=== PATIENT | male | born 1985 | race Caucasian/White ===

== ENCOUNTER 2019-02-14 18:30 | Emergency (ER) | payer MEDICAID ==
[~2019-02-14] VITALS: Ht 185.4 cm; Wt 79.7 kg
[2019-02-14 18:45] VITALS: BP 147/85
== END 2019-02-14 20:08 ==
LOC: ED 19:34
DX: B34.9 Viral infection, unspecified (principal); Z88.0 Allergy status to penicillin
CPT/HCPCS: 71046; 99283; J7512; Q0177

== ENCOUNTER 2019-02-15 11:03 | Emergency (ER) | payer MEDICAID ==
[~2019-02-15] VITALS: Ht 185.4 cm; Wt 77.3 kg
[2019-02-15 11:17] VITALS: BP 132/68
--- NOTE | 2019-02-15 12:05 | NUR ---
Pt to 34 from lobby
--- NOTE | 2019-02-15 12:19 | NUR ---
PT TO ROOM WITH A STEADY GAIT. PT C/O ANXIETY TODAY. PROVIDER IN ROOM AWAITING ORDERS.
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
== END 2019-02-15 13:00 | disposition home or self-care (01) ==
LOC: ED 12:30
DX: F41.1 Generalized anxiety disorder (principal); B34.9 Viral infection, unspecified; F15.10 Other stimulant abuse, uncomplicated; Z59.0 Homelessness
CPT/HCPCS: 99284

== ENCOUNTER 2019-02-17 13:34 | Emergency (ER) | payer MEDICAID ==
[~2019-02-17] VITALS: Ht 185.4 cm; Wt 79.7 kg
[2019-02-17 13:43] VITALS: BP 127/79
--- NOTE | 2019-02-17 14:13 | NUR ---
Patient given discharge instructions and they have confirmed that they understand the instructions. Patient ambulatory with steady gait.
== END 2019-02-17 14:21 | disposition home or self-care (01) ==
LOC: ED 14:10
DX: J06.9 Acute upper respiratory infection, unspecified (principal); F15.10 Other stimulant abuse, uncomplicated; Z72.9 Problem related to lifestyle, unspecified; F17.200 Nicotine dependence, unspecified, uncomplicated
CPT/HCPCS: 71046; 99283

== ENCOUNTER 2019-02-21 09:46 | Emergency (ER) | payer MEDICAID ==
[~2019-02-21] VITALS: Ht 185.4 cm; Wt 76.5 kg
[2019-02-21 09:51] VITALS: BP 130/91
[2019-02-21] MEDS ORDERED: ALBUTEROL SULFATE 2.5 MG/3 ML NPPB ONE (10:30)
--- NOTE | 2019-02-21 10:38 | NUR ---
RT PAGED FOR TX.
[2019-02-21] MEDS ORDERED: ALBUTEROL SULFATE 2.5 MG/3 ML ONE (10:56)
--- NOTE | 2019-02-21 11:00 | NUR ---
RT TX COMPLETED
--- NOTE | 2019-02-21 11:49 | NUR ---
PT GIVEN DC INSTRUCTIONS. PT A&O, RESPS EVEN AND UNLABORED, NADN AT DC. PT AMB TO DC DESK WITH STEADY GAIT.
== END 2019-02-21 11:50 | disposition home or self-care (01) ==
LOC: ED 10:26
DX: J20.8 Acute bronchitis due to other specified organisms (principal); B34.9 Viral infection, unspecified; M79.641 Pain in right hand; Z72.9 Problem related to lifestyle, unspecified; F41.1 Generalized anxiety disorder; Z88.0 Allergy status to penicillin
CPT/HCPCS: 71046; 73130; 94640; 99283; J7613

== ENCOUNTER 2019-02-22 10:09 | Emergency (ER) | payer MEDICAID ==
[~2019-02-22] VITALS: Ht 185.4 cm; Wt 76.4 kg
[2019-02-22 10:13] VITALS: BP 121/77
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
== END 2019-02-22 11:24 | disposition home or self-care (01) ==
LOC: ED 11:13
DX: M79.642 Pain in left hand (principal); M79.641 Pain in right hand; M79.672 Pain in left foot; M79.671 Pain in right foot; Z72.820 Sleep deprivation; Y04.8XXA Assault by other bodily force, initial encounter
CPT/HCPCS: 99283

== ENCOUNTER 2019-05-22 00:02 | Emergency (ER) | payer MEDICAID ==
[~2019-05-22] VITALS: Ht 185.4 cm; Wt 79.7 kg
[2019-05-22 01:30] VITALS: BP 127/69
== END 2019-05-22 01:34 | disposition home or self-care (01) ==
LOC: ED 00:11
DX: S60.221A Contusion of right hand, initial encounter (principal); X58.XXXA Exposure to other specified factors, initial encounter; Y93.89 Activity, other specified; Y92.410 Unspecified street and highway as the place of occurrence of the external cause; Y99.8 Other external cause status
CPT/HCPCS: 99283

== ENCOUNTER 2019-07-21 14:57 | Emergency (ER) | payer MEDICAID ==
[~2019-07-21] VITALS: Ht 185.4 cm; Wt 75.5 kg
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
[2019-07-21 16:30] VITALS: BP 134/81
[2019-07-21] MEDS ORDERED: LORazepam 1MG TABLET ONE (16:54)
[2019-07-21] MEDS ORDERED: LORazepam 1MG TABLET PO ONE (17:00)
--- NOTE | 2019-07-21 17:18 | NUR ---
pt given food, very agitated, pacing in room. Pt asking where his script is, told to sit and eat while we get his paperwork together. Pt not agreeable with plan, very mad
--- NOTE | 2019-07-21 17:23 | NUR ---
Pt given d/c instructions and threw them on the ground. Pt walked out to registration desk for d/c.
[2019-07-30] MEDS ORDERED: QUET100T PO (14:06)
[2019-07-30] MEDS ORDERED: NICO-486 TD (14:06)
[2019-07-30] MEDS ORDERED: SERT50TA28 PO (14:06)
[2019-07-30] MEDS ORDERED: HYDR50TA13 PO (15:00)
== END 2019-07-21 17:29 | disposition home or self-care (01) ==
LOC: ED 17:05
DX: F41.1 Generalized anxiety disorder (principal); F15.10 Other stimulant abuse, uncomplicated
CPT/HCPCS: 99283; 99284

== ENCOUNTER 2019-07-25 16:17 | Emergency (ER) | payer MEDICAID ==
[~2019-07-25] VITALS: Ht 185.4 cm; Wt 76.0 kg
[2019-07-25 16:21] VITALS: BP 125/71
[2019-07-25] MEDS ORDERED: LORazepam 1MG TABLET ONE (16:43)
--- NOTE | 2019-07-25 16:57 | NUR ---
Patient/Caregiver given discharge instructions and they have confirmed that they understand the instructions. Patient ambulatory with steady gait.
[2019-07-25] MEDS ORDERED: LORazepam 1MG TABLET PO ONE (17:00)
[2019-07-30] MEDS ORDERED: NICO-486 TD (14:06)
[2019-07-30] MEDS ORDERED: SERT50TA28 PO (14:06)
[2019-07-30] MEDS ORDERED: QUET100T PO (14:06)
[2019-07-30] MEDS ORDERED: HYDR50TA13 PO (15:00)
== END 2019-07-25 16:58 | disposition home or self-care (01) ==
LOC: ED 16:52
DX: F41.1 Generalized anxiety disorder (principal); F10.10 Alcohol abuse, uncomplicated; F17.200 Nicotine dependence, unspecified, uncomplicated; Z72.9 Problem related to lifestyle, unspecified; Z75.9 Unspecified problem related to medical facilities and other health care; Z91.14 Patient's other noncompliance with medication regimen; Y90.9 Presence of alcohol in blood, level not specified
CPT/HCPCS: 99282; 99284

== ENCOUNTER 2019-09-03 03:50 | Emergency (ER) | payer MEDICAID ==
[~2019-09-03] VITALS: Ht 185.4 cm; Wt 75.8 kg
[~2019-09-03 03:50] MED LIST: HYDR50TA13 PO; NICO-486 TD; QUET100T PO; SERT50TA28 PO
[2019-09-03 03:52] VITALS: BP 129/61
--- NOTE | 2019-09-03 04:02 | NUR ---
PT TO ED W/ C/O FEELING INCREASED ANXIETY, REPORTS HX OF, HAS NOT TAKEN MEDICATIONS IN OVER A MONTH. PT REPORTS HAS STOPPED DRUG USE AND ALCOHOL USE. Addendum: 09/03/19 at 0404 by ARELIS PT REPORTS HAS A SCHEDULED APPOINTMENT ON 09/08/19 TO GET ESTABLISHED W/ A DOCTOR AND START BACK UP ON MEDICATIONS. PT REPORTS STARTED TO FEEL INCREASED ANXIETY YESTERDAY W/ NAUSEA. PT ASKING "IF THERE IS ANYTHING WE CAN DO" BEFORE SCHEDULED APPOINTMENT.
[2019-09-03] MEDS ORDERED: LORazepam 1MG TABLET PO ONE (04:30)
[2019-09-03] MEDS ORDERED: LORazepam 1MG TABLET ONE (04:35)
--- NOTE | 2019-09-03 04:42 | NUR ---
REVIEWED DISCHARGE INSTRUCTIONS AND PRESCRIPTION W/ PT, VERBALIZED UNDERSTANDING TO INFORMATION PROVIDED INCLUDING FOLLOW UP CARE AND RETURN PRECAUTIONS. PT STATED IS GOING TO SEE PCP SCHEDULED. PT THANKED RN FOR MEDICATION, AMBULATED FROM ED.
== END 2019-09-03 04:44 | disposition home or self-care (01) ==
LOC: ED 04:35
DX: F41.1 Generalized anxiety disorder (principal); F32.9 Major depressive disorder, single episode, unspecified; F43.10 Post-traumatic stress disorder, unspecified; Z87.891 Personal history of nicotine dependence
CPT/HCPCS: 99284

== ENCOUNTER 2019-09-05 18:53 | Emergency (ER) | payer MEDICAID ==
[~2019-09-05] VITALS: Ht 185.4 cm; Wt 77.7 kg
[2019-09-05 19:01] VITALS: BP 132/70
--- NOTE | 2019-09-05 19:24 | NUR ---
WITH EXAM PATIENT DEMANDING "SOMETHING BETTER THAN NAPROXEN FOR MY HAND. I NEED SOME MORPHINE OR SOMETHING." PROVIDER TOLD PATIENT YOU WILL ONLY BE PRESCRIBED AN NSAID. PATIENT THEN REPORTS "FINE I'LL LEAVE." DESPITE ATTEMPTS TO HAVE PATIENT SIGN AMA PAPERWORK PATIENT LEFT EMERGENCY ROOM
== END 2019-09-05 19:32 | disposition home or self-care (01) ==
LOC: ED 19:18
DX: M79.641 Pain in right hand (principal); F32.9 Major depressive disorder, single episode, unspecified; F41.1 Generalized anxiety disorder
CPT/HCPCS: 99281

== ENCOUNTER 2019-09-07 00:30 | Emergency (ER) | payer MEDICAID ==
[~2019-09-07] VITALS: Ht 185.4 cm; Wt 77.8 kg
[2019-09-07 00:33] VITALS: BP 133/89
--- NOTE | 2019-09-07 00:45 | NUR ---
PT BROUGHT TO ROOM. 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 MULTIPLE ATTEMPTS IN PAST. NO PRESCRIBED MEDS. PT DOESN'T HAVE PERMAENT HOUSING, STAYS WITH FRIENDS. PT BELONGINGS 1 BAG IN LOCKER. ROOM SECURED, SITTER AT DOOR.
[2019-09-07 01:15] LABS: BASOPHILS # (AUTO) 0.04 x10^3/uL (0-0.1); BASOPHILS % (AUTO) 1 % (0-1); EOSINOPHILS # (AUTO) 0.37 x10^3/uL (0-0.4); EOSINOPHILS % (AUTO) 7 % (1-7); LYMPHOCYTES # (AUTO) 2.21 x10^3/uL (1-3.4); LYMPHOCYTES % (AUTO) 40 % (22-44); MD NO; MEAN CORPUSCULAR HGB CONC 33.7 g/dL (33.2-36.2); MEAN CORPUSCULAR VOLUME 95.1 fL (81-97); MEAN PLATELET VOLUME 11.5 fL (7.4-10.4); MONOCYTES # (AUTO) 0.53 x10^3/uL (0.2-0.8); MONOCYTES % (AUTO) 10 % (2-9); NEUTROPHILS # (AUTO) 2.38 x10^3/uL (1.8-6.8); NEUTROPHILS % (AUTO) 43 % (42-75); PLATELET COUNT 138 x10^3/uL (130-400); RED CELL DISTRIBUTION WIDTH 13.4 % (9.4-14.8)
[2019-09-07 01:25] LABS: ALANINE AMINOTRANSFERASE 77 U/L (12-78); ALBUMIN 3.6 g/dL (3.4-5.0); ANION GAP 4 mmol/L (5-15); CALCIUM 8.2 mg/dL (8.5-10.1); CHLORIDE 113 mmol/L (98-107); CREATININE 0.81 mg/dL (0.7-1.3)
[2019-09-07 01:27] LABS: ALKALINE PHOSPHATASE 78 U/L (45-117); BILIRUBIN,TOTAL 0.3 mg/dL (0.2-1.0); TOTAL PROTEIN 6.9 g/dL (6.4-8.2)
[2019-09-07 01:28] LABS: SALICYLATE LEVEL < 1.7 mg/dL (2.8-20.0)
[2019-09-07 01:38] LABS: AMPHETAMINE SCREEN, URINE Positive (Negative); BARBITURATE SCREEN, URINE Negative (Negative); BENZODIAZEPINE SCREEN, URINE Negative (Negative); CANNABINOID SCREEN, URINE Negative (Negative); COCAINE SCREEN, URINE Positive (Negative); METHADONE SCREEN, URINE Negative (Negative); OPIATE SCREEN, URINE Negative (Negative)
--- NOTE | 2019-09-07 01:46 | NUR ---
PT. PROVIDED WITH CRACKERS AND WATER PER REQUEST. DENIES OTHER NEEDS. ALL BELONGINGS WERE LABELED AND SECURED IN LOCKER BY MATTHEW SHOOK UPON ENTERING ROOM. ROOM IS SECURED AND SITTER IS IN [place]. PT. DENIES OTHER NEEDS.
--- NOTE | 2019-09-07 02:30 | NUR ---
PT RESTING WITH EYES CLOSED.
== END 2019-09-07 02:54 | disposition home or self-care (01) ==
LOC: ED 01:55
DX: F14.10 Cocaine abuse, uncomplicated (principal); T40.1X1A Poisoning by heroin, accidental (unintentional), initial encounter; F15.10 Other stimulant abuse, uncomplicated; F17.210 Nicotine dependence, cigarettes, uncomplicated; Y92.9 Unspecified place or not applicable
CPT/HCPCS: 36415; 80053; 80307; 85025; 93005; 99284

== ENCOUNTER 2019-12-22 07:29 | Emergency (ER) | payer MEDICAID ==
[~2019-12-22] VITALS: Ht 185.4 cm; Wt 91.9 kg
[~2019-12-22 07:29] MED LIST changes: -HYDR50TA13 PO; +HYDR50TA99 PO
[2019-12-22 07:30] VITALS: BP 147/79
--- NOTE | 2019-12-22 09:02 | NUR ---
MASSAGE THERAPY INSTRUCTOR: PT AMBULATORY TO ROOM FROM LOBBY
--- NOTE | 2019-12-22 09:04 | NUR ---
THIS IS A 34 YEAR OLD MALE WHO IS REQUESTING ATIVAN FOR ANXIETY.
[2019-12-22] MEDS ORDERED: LORazepam 1MG TABLET ONE (09:36)
[2019-12-22] MEDS ORDERED: LORazepam 1MG TABLET PO ONE (10:00)
== END 2019-12-22 10:02 | disposition home or self-care (01) ==
LOC: ED 10:01
DX: F41.1 Generalized anxiety disorder (principal)
CPT/HCPCS: 99283

== ENCOUNTER 2019-12-25 11:43 | Emergency (ER) | payer MEDICAID ==
[~2019-12-25] VITALS: Ht 185.4 cm; Wt 88.6 kg
[2019-12-25 11:50] VITALS: BP 156/100
[2019-12-25 12:30] LABS: BASOPHILS # (AUTO) 0.05 x10^3/uL (0-0.1); BASOPHILS % (AUTO) 1 % (0-1); EOSINOPHILS % (AUTO) 1 % (1-7); LYMPHOCYTES % (AUTO) 38 % (22-44); MD NO; MEAN CORPUSCULAR HEMOGLOBIN 32.3 pg (27.5-34.5); MEAN CORPUSCULAR HGB CONC 34.2 g/dL (33.2-36.2); MEAN CORPUSCULAR VOLUME 94.5 fL (81-97); MEAN PLATELET VOLUME 10.9 fL (7.4-10.4); MONOCYTES # (AUTO) 0.77 x10^3/uL (0.2-0.8); MONOCYTES % (AUTO) 10 % (2-9); NEUTROPHILS # (AUTO) 3.73 x10^3/uL (1.8-6.8); NEUTROPHILS % (AUTO) 49 % (42-75); PLATELET COUNT 149 x10^3/uL (130-400); RED BLOOD COUNT 4.68 x10^6/uL (4.38-5.82); RED CELL DISTRIBUTION WIDTH 13.8 % (9.4-14.8)
[2019-12-25 12:43] LABS: ALBUMIN 4.1 g/dL (3.4-5.0); ANION GAP 10 mmol/L (5-15); CALCIUM 9.1 mg/dL (8.5-10.1); CHLORIDE 102 mmol/L (98-107)
[2019-12-25 12:50] LABS: ALANINE AMINOTRANSFERASE 119 U/L (12-78); ALKALINE PHOSPHATASE 68 U/L (45-117); BILIRUBIN,TOTAL 1.3 mg/dL (0.2-1.0); CREATININE 0.82 mg/dL (0.7-1.3)
[2019-12-25 13:00] LABS: SALICYLATE LEVEL < 1.7 mg/dL (2.8-20.0)
[2019-12-25] MEDS ORDERED: LORazepam 1MG TABLET PO ONE (13:00)
[2019-12-25] MEDS ORDERED: CEPHALEXIN 500 MG CAPSULE PO ONE (13:00)
[2019-12-25] MEDS ORDERED: CEPHALEXIN 500 MG CAPSULE ONE (13:12)
[2019-12-25] MEDS ORDERED: LORazepam 1MG TABLET ONE (13:12)
--- NOTE | 2019-12-25 13:26 | NUR ---
HONG RN: THIS IS A 34 YO MALE WHO PRESENTS TO THE ER C/O "MY LIFE IS OVER. I JUST LOST EVERYTHING. I JUST GOT OUT OF REHAB AND I RECONNECTED WITH THIS MENG. I'M GONNA EITHER WAY. I DON'T CARE. WHETHER IT'S HERE OR I'LL JUMP IN FRONT OF A BIG NICE SEMI." PT ADMITS TO USING METH "TO STAY AWAKE". PT REQUESTED AND WAS PROVIDED WITH MEDICATION FOR ANXIETY. PT AO X 4, HOWEVER, HAS FLIGHT OF IDEAS AND JUMPS FROM TOPIC TO TOPIC. GARAGE DOORS DOWN IN ROOM. BELONGINGS PLACED IN ONE BAG AND PUT IN LOCKED LOCKER. SITTER AT DOORSIDE.
[2019-12-25] MEDS ORDERED: QUETIAPINE 100MG TABLET PO SCH (14:00)
[2019-12-25 14:02] LABS: AMPHETAMINE SCREEN, URINE Positive (Negative); BARBITURATE SCREEN, URINE Negative (Negative); BENZODIAZEPINE SCREEN, URINE Negative (Negative); CANNABINOID SCREEN, URINE Negative (Negative); COCAINE SCREEN, URINE Negative (Negative); METHADONE SCREEN, URINE Negative (Negative); OPIATE SCREEN, URINE Negative (Negative)
[2019-12-25 14:08] LABS: CULTURE INDICATED? YES; MICROSCOPIC INDICATED
[2019-12-25] MEDS ORDERED: QUETIAPINE 100MG TABLET ONE (14:19)
[2019-12-25] MEDS ORDERED: SERTRALINE 50MG TABLET ONE (14:19)
[2019-12-25] MEDS ORDERED: HALOPERIDOL 5 MG/ML IM PRN (14:30)
[2019-12-25] MEDS ORDERED: IBUPROFEN 200 MG TABLET ONE (14:45)
[2019-12-25] MEDS ORDERED: IBUPROFEN 200 MG TABLET PO ONE (15:00)
--- NOTE | 2019-12-25 15:11 | NUR ---
Throughput RN note: Pt's packet faxed to [facility], [place], and [facility].
--- NOTE | 2019-12-25 16:04 | NUR ---
SBAR TELEPHONE HAND-OFF REPORT GIVEN TO MATTHEW STODDARD IN [facility].
[2019-12-26] MEDS ORDERED: SERTRALINE 50MG TABLET PO SCH (09:00)
== END 2019-12-25 17:26 ==
LOC: ED 15:29
DX: F32.9 Major depressive disorder, single episode, unspecified (principal); R45.851 Suicidal ideations; L03.012 Cellulitis of left finger; F15.10 Other stimulant abuse, uncomplicated
CPT/HCPCS: 36415; 80053; 80307; 81001; 85025; 87086; 99285; Q0177

== ENCOUNTER 2019-12-25 15:37 | Inpatient (IN) | payer MEDICAID ==
[~2019-12-25] VITALS: Ht 185.4 cm; Wt 86.9 kg
[2019-12-25] MEDS ORDERED: ONDANSETRON ODT 4 MG PO PRN (16:30)
[2019-12-25] MEDS ORDERED: ACETAMINOPHEN 325 MG TABLET PO PRN (16:30)
[2019-12-25] MEDS ORDERED: POLYETHYLENE GLYCOL 17 GM PACKET PO PRN (16:30)
[2019-12-25] MEDS ORDERED: DOCUSATE 100 MG CAPSULE PO PRN (16:30)
[2019-12-25] MEDS ORDERED: BISACODYL 10 MG SUPP PR PRN (16:30)
[2019-12-25] MEDS ORDERED: PLEASE ENTER HEIGHT AND WEIGHT MC SCH (18:00)
[2019-12-25 18:22] VITALS: BP 131/83
[2019-12-25 19:15] VITALS: BP 111/68
[2019-12-25] MEDS: CEPHALEXIN 500 MG CAPSULE PO SCH (22:14)
[2019-12-25] MEDS: QUETIAPINE 100MG TABLET PO SCH (22:15)
[2019-12-25] MEDS: HYDROXYZINE PAMOATE 50MG CAP PO PRN (22:50)
[2019-12-26] MEDS: CEPHALEXIN 500 MG CAPSULE PO SCH ×3 (03:57→15:14)
[2019-12-26 06:25] LABS: FREE T4 (FREE THYROXINE) 1.57 ng/dL (0.76-1.46)
[2019-12-26 07:51] VITALS: BP 117/75
[2019-12-26] MEDS: QUETIAPINE 100MG TABLET PO SCH ×2 (08:00→20:21)
[2019-12-26] MEDS: HYDROXYZINE PAMOATE 50MG CAP PO PRN ×3 (08:00→20:21)
[2019-12-26] MEDS: SERTRALINE 50MG TABLET PO SCH (08:01)
[2019-12-26] MEDS: NICOTINE 14MG/24 HR PATCH.TD24 TD SCH (08:04)
[2019-12-26] MEDS: LACTOBACILLUS CHEW TABLET PO SCH ×2 (17:34→20:21)
[2019-12-26] MEDS: CLINDAMYCIN 300 MG CAPSULE PO SCH ×2 (17:34→21:35)
[2019-12-26 19:14] VITALS: BP 116/68
[2019-12-26] MEDS: TRAZODONE 50MG TABLET PO PRN (20:21)
[2019-12-26] MEDS: IBUPROFEN 600 MG TABLET PO PRN (20:21)
[2019-12-27] MEDS: CLINDAMYCIN 300 MG CAPSULE PO SCH ×4 (05:19→21:26)
[2019-12-27 07:56] VITALS: BP 114/64
[2019-12-27] MEDS: QUETIAPINE 100MG TABLET PO SCH ×2 (08:18→20:32)
[2019-12-27] MEDS: SERTRALINE 50MG TABLET PO SCH (08:18)
[2019-12-27] MEDS: NICOTINE 14MG/24 HR PATCH.TD24 TD SCH (08:18)
[2019-12-27] MEDS: LACTOBACILLUS CHEW TABLET PO SCH ×3 (08:18→20:32)
[2019-12-27] MEDS: IBUPROFEN 600 MG TABLET PO PRN ×2 (11:17→20:32)
[2019-12-27] MEDS: HYDROXYZINE PAMOATE 50MG CAP PO PRN ×2 (11:17→20:32)
[2019-12-27] MEDS ORDERED: QUETIAPINE 100MG TABLET PO ONE (14:00)
[2019-12-27 19:15] VITALS: BP 117/69
[2019-12-27] MEDS: TRAZODONE 50MG TABLET PO PRN (20:32)
[2019-12-28] MEDS: CLINDAMYCIN 300 MG CAPSULE PO SCH ×4 (05:29→20:46)
[2019-12-28 07:36] VITALS: BP 94/57
[2019-12-28] MEDS: LACTOBACILLUS CHEW TABLET PO SCH ×3 (08:34→20:45)
[2019-12-28] MEDS: SERTRALINE 50MG TABLET PO SCH (08:35)
[2019-12-28] MEDS: NICOTINE 14MG/24 HR PATCH.TD24 TD SCH (08:36)
[2019-12-28] MEDS: QUETIAPINE 100MG TABLET PO SCH ×2 (08:36→20:46)
[2019-12-28] MEDS: IBUPROFEN 600 MG TABLET PO PRN ×2 (09:04→20:46)
[2019-12-28] MEDS ORDERED: CLIN300C8 PO (15:59)
[2019-12-28] MEDS ORDERED: QUET100T PO (15:59)
[2019-12-28] MEDS ORDERED: TRAZ50TA66 PO (15:59)
[2019-12-28] MEDS ORDERED: NICO-486 TD (15:59)
[2019-12-28] MEDS ORDERED: SERT50TA28 PO (15:59)
[2019-12-28] MEDS ORDERED: ACID1TAB7 PO (15:59)
[2019-12-28 19:00] VITALS: BP 127/69
[2019-12-28] MEDS: TRAZODONE 50MG TABLET PO PRN (20:45)
[2019-12-29] MEDS: CLINDAMYCIN 300 MG CAPSULE PO SCH ×2 (04:57→10:30)
[2019-12-29 07:17] VITALS: BP 112/72
[2019-12-29] MEDS: SERTRALINE 50MG TABLET PO SCH (08:33)
[2019-12-29] MEDS: QUETIAPINE 100MG TABLET PO SCH (08:33)
[2019-12-29] MEDS: NICOTINE 14MG/24 HR PATCH.TD24 TD SCH (08:36)
[2019-12-29] MEDS: LACTOBACILLUS CHEW TABLET PO SCH (08:36)
[2019-12-29] MEDS: IBUPROFEN 600 MG TABLET PO PRN (09:00)
== END 2019-12-29 11:05 | disposition home or self-care (01) | DRG 885 ==
LOC: 3E 17:28
PROVIDERS: ADMIT Psychiatry & Neurology Psychosomatic Medicine; ATTEND Psychiatry & Neurology Psychosomatic Medicine
DX: F31.30 Bipolar disorder, current episode depressed, mild or moderate severity, unspecified (principal); R45.851 Suicidal ideations; F15.20 Other stimulant dependence, uncomplicated; L03.113 Cellulitis of right upper limb; F17.210 Nicotine dependence, cigarettes, uncomplicated; F41.9 Anxiety disorder, unspecified; Z79.899 Other long term (current) drug therapy; Z87.820 Personal history of traumatic brain injury; Z88.0 Allergy status to penicillin; Z91.030 Bee allergy status
CPT/HCPCS: 36415; 84439; 84443; 86704; 86705; 86706; 86708; 86709; 86803; 87340; 87521; 93005

== ENCOUNTER 2019-12-29 13:13 | Emergency (ER) | payer MEDICAID ==
[~2019-12-29] VITALS: Ht 185.4 cm; Wt 89.4 kg
[~2019-12-29 13:13] MED LIST changes: +ACID1TAB7 PO; +CLIN300C8 PO; +TRAZ50TA66 PO
--- NOTE | 2019-12-29 13:31 | NUR ---
LINK TRAINER MAINTENANCE MAN CALLED [facility] LOC[facility] AT [facility] PATIENT WAS RECENTLY DISCHARGED WITHIN THE LAST FEW HOURS. PER KECIA ON THE BHU THEY SET PT UP AT THE [facility] AT [facility] AND PT REFUSED TO GO.
--- NOTE | 2019-12-29 13:56 | NUR ---
CALTRANS EQUIPMENT OPERATOR: PT PLACED IN ROOM 39.
--- NOTE | 2019-12-29 14:36 | NUR ---
PT RESTING IN BED, NO STATED NEEDS AT THIS TIME. SITTER AT DOOR. PT IN HOSPITAL GOWN.
--- NOTE | 2019-12-29 15:50 | NUR ---
PT TALKING WITH BAUTISTA EATON.
[2019-12-29] MEDS ORDERED: TRAZODONE 50MG TABLET PO PRN (16:00)
[2019-12-29] MEDS ORDERED: NICOTINE 14MG/24 HR PATCH.TD24 TD ONE (16:00)
[2019-12-29 16:28] LABS: ALBUMIN 3.4 g/dL (3.4-5.0); ANION GAP 6 mmol/L (5-15); CALCIUM 8.4 mg/dL (8.5-10.1); CHLORIDE 108 mmol/L (98-107); CREATININE 0.86 mg/dL (0.7-1.3); SALICYLATE LEVEL 1.8 mg/dL (2.8-20.0)
--- NOTE | 2019-12-29 16:32 | NUR ---
PT HAS BEEN PLACED ON LEGAL HOLD. SITTER AT DOOR.
[2019-12-29 16:42] LABS: MEAN CORPUSCULAR HGB CONC 33.4 g/dL (33.2-36.2); MEAN CORPUSCULAR VOLUME 95.7 fL (81-97); MEAN PLATELET VOLUME 11.4 fL (7.4-10.4); PLATELET COUNT 140 x10^3/uL (130-400); RED BLOOD COUNT 4.96 x10^6/uL (4.38-5.82); RED CELL DISTRIBUTION WIDTH 13.6 % (9.4-14.8)
[2019-12-29 16:43] LABS: <PLATELET ESTIMATE> ADEQUATE; <RBC MORPHOLOGY> NORMAL; BASOPHILS # (AUTO) 0.03 x10^3/uL (0-0.1); BASOPHILS % (AUTO) 1 % (0-1); EOSINOPHILS # (AUTO) 0.22 x10^3/uL (0-0.4); EOSINOPHILS % (AUTO) 4 % (1-7); LYMPHOCYTES # (AUTO) 1.71 x10^3/uL (1-3.4); LYMPHOCYTES % (AUTO) 29 % (22-44); MD MORPH REVIEW ONLY; MONOCYTES # (AUTO) 0.27 x10^3/uL (0.2-0.8); MONOCYTES % (AUTO) 5 % (2-9); NEUTROPHILS # (AUTO) 3.61 x10^3/uL (1.8-6.8); NEUTROPHILS % (AUTO) 62 % (42-75)
[2019-12-29 16:44] LABS: LARGE PLATELETS 1+
[2019-12-29] MEDS ORDERED: LABETALOL 5MG/ML, 20ML ONE (17:18)
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
[2019-12-29 17:45] LABS: AMPHETAMINE SCREEN, URINE Negative (Negative); BARBITURATE SCREEN, URINE Negative (Negative); BENZODIAZEPINE SCREEN, URINE Negative (Negative); CANNABINOID SCREEN, URINE Negative (Negative); COCAINE SCREEN, URINE Negative (Negative); METHADONE SCREEN, URINE Negative (Negative); OPIATE SCREEN, URINE Negative (Negative)
--- NOTE | 2019-12-29 18:07 | NUR ---
pt friend called to ask where pt was, called [facility]. pt stated this individual may recieve info about him. Jeffry William - [phone]
--- NOTE | 2019-12-29 18:56 | NUR ---
PACKET FAXED TO [facility], [facility] AND [facility]
--- NOTE | 2019-12-29 19:28 | NUR ---
received report from MATTHEW Hilliard.
--- NOTE | 2019-12-29 19:45 | NUR ---
Patient accepted by Rolo Jaime. Accepting doctor Dr. Khan. Ready to go CATHERINE.
--- NOTE | 2019-12-29 19:45 | NUR ---
gave report both to ravinder agarwal and [facility]. awaiting acceptance.
[2019-12-29] MEDS ORDERED: TRAZODONE 50MG TABLET ONE (20:09)
[2019-12-29] MEDS ORDERED: QUETIAPINE 100MG TABLET ONE (20:09)
[2019-12-29] MEDS ORDERED: NICOTINE 14MG/24 HR PATCH.TD24 ONE (20:10)
--- NOTE | 2019-12-29 20:49 | NUR ---
[facility] auth code: [id number]. [facility] ETA [id number]
[2019-12-29] MEDS ORDERED: QUETIAPINE 100MG TABLET PO SCH (21:00)
--- NOTE | 2019-12-29 21:15 | NUR ---
meal provided to patient.
--- NOTE | 2019-12-29 21:28 | NUR ---
patient sleeping at this time. respiration unlabored. sitter at the door.
--- NOTE | 2019-12-29 22:13 | NUR ---
al here to take patient to [facility]. belongings with al.
[2019-12-29 22:15] VITALS: BP 115/76
[2019-12-30] MEDS ORDERED: SERTRALINE 50MG TABLET PO SCH (09:00)
== END 2019-12-29 22:18 ==
LOC: ED 16:16
DX: R45.851 Suicidal ideations (principal)
CPT/HCPCS: 36415; 80048; 80307; 82040; 85025; 99285

== ENCOUNTER 2020-01-20 14:09 | Emergency (ER) | payer MEDICAID ==
[~2020-01-20] VITALS: Ht 185.4 cm; Wt 85.6 kg
[2020-01-20 14:13] VITALS: BP 114/70
[2020-01-20] MEDS ORDERED: ONDANSETRON ODT 4 MG PO ONE (14:30)
[2020-01-20] MEDS ORDERED: ONDANSETRON ODT 4 MG ONE (14:31)
--- NOTE | 2020-01-20 14:46 | NUR ---
MEDICATED PER ORDERS AND THEN PROVIDED WATER
== END 2020-01-20 15:10 | disposition home or self-care (01) ==
LOC: ED 14:58
DX: F15.10 Other stimulant abuse, uncomplicated (principal); F39 Unspecified mood [affective] disorder; F41.1 Generalized anxiety disorder; Z88.0 Allergy status to penicillin
CPT/HCPCS: 93005; 99283; Q0162

== ENCOUNTER 2020-01-22 13:56 | Emergency (ER) | payer MEDICAID ==
[~2020-01-22] VITALS: Ht 185.4 cm; Wt 84.3 kg
--- NOTE | 2020-01-22 14:33 | NUR ---
METER REPAIRER: PT TO ROOM FROM LOBBY, AMBULATORY TO ROOM WITH STEADY GAIT. NAD NOTED.
[2020-01-22 14:37] VITALS: BP 129/82
== END 2020-01-22 15:33 | disposition home or self-care (01) ==
LOC: ED 15:31
DX: F15.10 Other stimulant abuse, uncomplicated (principal); F41.9 Anxiety disorder, unspecified
CPT/HCPCS: 99281

== ENCOUNTER 2020-01-24 13:28 | Emergency (ER) | payer MEDICAID ==
[~2020-01-24] VITALS: Ht 185.4 cm; Wt 81.6 kg
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
--- NOTE | 2020-01-24 14:15 | NUR ---
ANGELITO BAUM AT BEDSIDE FOR PSYCH EVAL.
--- NOTE | 2020-01-24 14:51 | NUR ---
PT PROVIDED SAFETY DIET TRAY. RESTING ON [employer]. SITTER OUTSIDE ROOM. DENIES FURTHER NEEDS AT THIS TIME.
--- NOTE | 2020-01-24 14:59 | NUR ---
LAB IN ROOM.
[2020-01-24] MEDS ORDERED: SERTRALINE 50MG TABLET PO SCH (15:00)
[2020-01-24] MEDS ORDERED: QUETIAPINE 25MG TABLET PO SCH (15:00)
[2020-01-24] MEDS ORDERED: TRAZODONE 50MG TABLET PO PRN (15:00)
[2020-01-24] MEDS ORDERED: SERTRALINE 50MG TABLET ONE (15:03)
[2020-01-24] MEDS ORDERED: QUETIAPINE 25MG TABLET ONE (15:03)
--- NOTE | 2020-01-24 15:05 | NUR ---
PT MEDICATED PER EMAR.
[2020-01-24 15:12] LABS: BASOPHILS # (AUTO) 0.03 x10^3/uL (0-0.1); BASOPHILS % (AUTO) 1 % (0-1); EOSINOPHILS # (AUTO) 0.35 x10^3/uL (0-0.4); EOSINOPHILS % (AUTO) 6 % (1-7); LYMPHOCYTES # (AUTO) 1.82 x10^3/uL (1-3.4); LYMPHOCYTES % (AUTO) 32 % (22-44); MD NO; MEAN CORPUSCULAR HEMOGLOBIN 31.5 pg (27.5-34.5); MEAN CORPUSCULAR HGB CONC 33.5 g/dL (33.2-36.2); MEAN CORPUSCULAR VOLUME 94.1 fL (81-97); MEAN PLATELET VOLUME 12.2 fL (7.4-10.4); MONOCYTES # (AUTO) 0.41 x10^3/uL (0.2-0.8); MONOCYTES % (AUTO) 7 % (2-9); NEUTROPHILS # (AUTO) 3.02 x10^3/uL (1.8-6.8); NEUTROPHILS % (AUTO) 54 % (42-75); PLATELET COUNT 136 x10^3/uL (130-400); RED BLOOD COUNT 5.01 x10^6/uL (4.38-5.82); RED CELL DISTRIBUTION WIDTH 13.6 % (9.4-14.8)
[2020-01-24 15:17] LABS: AMPHETAMINE SCREEN, URINE Positive (Negative); BARBITURATE SCREEN, URINE Negative (Negative); BENZODIAZEPINE SCREEN, URINE Negative (Negative); CANNABINOID SCREEN, URINE Positive (Negative); COCAINE SCREEN, URINE Negative (Negative); METHADONE SCREEN, URINE Negative (Negative); OPIATE SCREEN, URINE Negative (Negative)
[2020-01-24 15:19] LABS: ALANINE AMINOTRANSFERASE 103 U/L (12-78); ALBUMIN 3.4 g/dL (3.4-5.0); ANION GAP 6 mmol/L (5-15); CALCIUM 8.8 mg/dL (8.5-10.1); CHLORIDE 108 mmol/L (98-107); CREATININE 0.71 mg/dL (0.7-1.3); SALICYLATE LEVEL 2.7 mg/dL (2.8-20.0)
[2020-01-24 15:21] LABS: ALKALINE PHOSPHATASE 57 U/L (45-117); BILIRUBIN,TOTAL 0.6 mg/dL (0.2-1.0); TOTAL PROTEIN 7.1 g/dL (6.4-8.2)
--- NOTE | 2020-01-24 16:15 | NUR ---
HOSPITAL BED ORDERED.
--- NOTE | 2020-01-24 16:21 | NUR ---
PACKET FAXED TO [facility], [facility],AND [facility]
--- NOTE | 2020-01-24 16:41 | NUR ---
RECEIVED CALL FROM [employer] REGARDING PT. STATES WILL CALL THEIR PHYSICIAN THAN CALL US BACK REGARDING TRANSFER.
--- NOTE | 2020-01-24 16:55 | NUR ---
PT SLEEPING ON GURNEY. CHEST RISE AND FALL OBSERVED.
--- NOTE | 2020-01-24 17:20 | NUR ---
ED SAFETY DIET TRAY ORDERED.
--- NOTE | 2020-01-24 17:25 | NUR ---
MED REC DONE.
[2020-01-24] MEDS ORDERED: IBUPROFEN 200 MG TABLET ONE (18:11)
--- NOTE | 2020-01-24 18:14 | NUR ---
PT AMBULATED TO THE BR W/ A STEADY GAIT. MEDICATED PER EMAR. DENIES PROVIDED ANOTHER BLANKET. DENIES FURTHER NEEDS AT THIS TIME.
[2020-01-24] MEDS ORDERED: IBUPROFEN 200 MG TABLET PO ONE (18:30)
--- NOTE | 2020-01-24 18:31 | NUR ---
DIET TRAY DELIVERED.
--- NOTE | 2020-01-24 20:08 | NUR ---
[facility] HAS ARRIVED. REPORT GIVEN TO [facility]. BELONGINGS REMOVED FROM LOCKED CABINET AND GIVEN TO MEDICS.
[2020-01-24 20:10] VITALS: BP 156/88
== END 2020-01-24 20:22 ==
LOC: ED 13:50
DX: R45.851 Suicidal ideations (principal); F15.10 Other stimulant abuse, uncomplicated; F41.9 Anxiety disorder, unspecified; F32.9 Major depressive disorder, single episode, unspecified; F17.200 Nicotine dependence, unspecified, uncomplicated
CPT/HCPCS: 36415; 80053; 80307; 85025; 99285

== ENCOUNTER 2020-04-17 05:48 | Emergency (ER) | payer MEDICAID ==
[~2020-04-17] VITALS: Ht 185.4 cm; Wt 85.7 kg
[2020-04-17 07:25] VITALS: BP 134/97
[2020-04-17] MEDS ORDERED: LORA2TAB99 PO (07:26)
--- NOTE | 2020-04-17 07:27 | NUR ---
INTEGRATED CIRCUITS INSPECTOR: PT VITAL SIGNS UPDATED. ALL TESTS RESULTED. CHART UP FOR RECHECK
--- NOTE | 2020-04-17 07:54 | NUR ---
PT TO ROOM FROM LOBBY, GAIT STEADY
[2020-04-17] MEDS ORDERED: IBUPROFEN 200 MG TABLET ONE (08:11)
[2020-04-17] MEDS ORDERED: ACETAMINOPHEN 500 MG TABLET ONE (08:11)
[2020-04-17] MEDS ORDERED: NEOSPORIN OINT. PKT 1 PACKET ONE (08:21)
--- NOTE | 2020-04-17 08:24 | NUR ---
NO IV TO DC. REVIEWED DC INSTRUCTIONS WITH PT. UNDERSTANDING VERBALIZED. PT TO LEAVE AMB.
[2020-04-17] MEDS ORDERED: ACETAMINOPHEN 500 MG TABLET PO ONE (08:30)
[2020-04-17] MEDS ORDERED: IBUPROFEN 800 MG TABLET PO ONE (08:30)
== END 2020-04-17 08:26 | disposition home or self-care (01) ==
LOC: ED 08:20
DX: S63.521A Sprain of radiocarpal joint of right wrist, initial encounter (principal); S90.822A Blister (nonthermal), left foot, initial encounter; S90.821A Blister (nonthermal), right foot, initial encounter; Y08.89XA Assault by other specified means, initial encounter; Y93.89 Activity, other specified; Y92.488 Other paved roadways as the place of occurrence of the external cause; Y99.8 Other external cause status
CPT/HCPCS: 29125; 99284

== ENCOUNTER 2020-04-17 12:53 | Emergency (ER) | payer MEDICAID ==
[~2020-04-17] VITALS: Ht 185.4 cm; Wt 85.4 kg
[~2020-04-17 12:53] MED LIST changes: +LORA2TAB99 PO
[2020-04-17 12:56] VITALS: BP 176/77
--- NOTE | 2020-04-17 13:48 | NUR ---
PORT TRAFFIC MANAGER: PT TO ROOM FROM JAKE BARNARD
[2020-04-17] MEDS ORDERED: hydrOXyzine 50MG TABLET PO ONE (14:00)
[2020-04-17] MEDS ORDERED: hydrOXyzine 50MG TABLET ONE (14:14)
--- NOTE | 2020-04-17 14:21 | NUR ---
PT ENCOURAGED TO STOP USING ILLICIT DRUGS. ATTEMPTED TO MEDICATE PT PER MAR, PT REFUSED STATING "NO, I NEED ATIVAN.". ERP NOTIFIED, NO NEW ORDESR, PT CONTINUES TO BE UP FOR DISCHARGE. PT EDUCATED ON NEW MEDICATION. LEFT PAPERWORK AND PRESCRIPTION IN ROOM AND LEFT PER DISCHARGE DESK.
== END 2020-04-17 14:32 | disposition home or self-care (01) ==
LOC: ED 14:15
DX: F41.1 Generalized anxiety disorder (principal); F17.200 Nicotine dependence, unspecified, uncomplicated
CPT/HCPCS: 99283

== ENCOUNTER 2020-04-20 16:49 | Emergency (ER) | payer MEDICAID ==
[~2020-04-20] VITALS: Ht 185.4 cm; Wt 83.9 kg
[2020-04-20 18:15] LABS: BASOPHILS # (AUTO) 0.07 x10^3/uL (0-0.1); BASOPHILS % (AUTO) 1 % (0-1); EOSINOPHILS # (AUTO) 0.14 x10^3/uL (0-0.4); EOSINOPHILS % (AUTO) 2 % (1-7); LYMPHOCYTES # (AUTO) 2.24 x10^3/uL (1-3.4); LYMPHOCYTES % (AUTO) 26 % (22-44); MD NO; MEAN CORPUSCULAR HEMOGLOBIN 30.4 pg (27.5-34.5); MEAN CORPUSCULAR HGB CONC 32.6 g/dL (33.2-36.2); MEAN CORPUSCULAR VOLUME 93.2 fL (81-97); MEAN PLATELET VOLUME 10.9 fL (7.4-10.4); MONOCYTES # (AUTO) 0.59 x10^3/uL (0.2-0.8); MONOCYTES % (AUTO) 7 % (2-9); NEUTROPHILS # (AUTO) 5.65 x10^3/uL (1.8-6.8); NEUTROPHILS % (AUTO) 65 % (42-75); PLATELET COUNT 211 x10^3/uL (130-400); RED BLOOD COUNT 5.02 x10^6/uL (4.38-5.82); RED CELL DISTRIBUTION WIDTH 13.7 % (9.4-14.8)
[2020-04-20 18:28] LABS: ALANINE AMINOTRANSFERASE 73 U/L (12-78); ANION GAP 9 mmol/L (5-15); CALCIUM 9.3 mg/dL (8.5-10.1); CHLORIDE 107 mmol/L (98-107); CREATININE 0.96 mg/dL (0.7-1.3); SALICYLATE LEVEL < 1.7 mg/dL (2.8-20.0)
[2020-04-20 18:31] LABS: ALKALINE PHOSPHATASE 77 U/L (45-117); BILIRUBIN,TOTAL 0.8 mg/dL (0.2-1.0); TOTAL PROTEIN 8.1 g/dL (6.4-8.2)
[2020-04-20] MEDS ORDERED: LORazepam 1MG TABLET PO ONE (19:30)
--- NOTE | 2020-04-20 19:30 | NUR ---
Pt back to room at this time.
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
[2020-04-20 19:45] LABS: AMPHETAMINE SCREEN, URINE Positive (Negative); BARBITURATE SCREEN, URINE Negative (Negative); BENZODIAZEPINE SCREEN, URINE Negative (Negative); CANNABINOID SCREEN, URINE Positive (Negative); COCAINE SCREEN, URINE Negative (Negative); METHADONE SCREEN, URINE Negative (Negative); OPIATE SCREEN, URINE Negative (Negative)
--- NOTE | 2020-04-20 19:50 | NUR ---
SI PRECAUTIONS IN PLACE, PT IN VIEW OF THE SITTER. BELONGINGS IN LOCKER. CALL LIGHT IN REACH.
[2020-04-20] MEDS ORDERED: LORazepam 1MG TABLET ONE (19:56)
--- NOTE | 2020-04-20 20:51 | NUR ---
TASK RN: BED ORDERED AT THIS TIME
--- NOTE | 2020-04-20 22:43 | NUR ---
PT SITTING IN BED, STILL STATES SI, STATES HE DOESN'T WANT TO GET IN TROUBLE WITH THE LAW BUT DOES NOT SPECIFY WHY HE WOULD BE IN TROUBLE WITH THE LAW. GIVEN FOOD AND WATER.
--- NOTE | 2020-04-21 00:55 | NUR ---
PT SLEEPING, IN VIEW OF SITTER.
--- NOTE | 2020-04-21 02:19 | NUR ---
Break RN: Patient sleeping in [facility]. Room secured, belongings in locked cabinet, sitter outside.
--- NOTE | 2020-04-21 02:20 | NUR ---
Packet faxed to [facility], , and [facility]. Conformations received. [facility] aware of patient, but unable to get prior authorization from insurance. Per [facility] they are able to get this authorization at 8am and are interested in taking patient if still in the ED at that time.
--- NOTE | 2020-04-21 03:42 | NUR ---
REPORT RECIEVED FROM OFFGOING RN.
--- NOTE | 2020-04-21 04:32 | NUR ---
PATIENT RESTING IN BED, NO NOTED NEEDS AT THIS TIME. SITTER WITHIN VIEW OF PATIENT. WILL CONTINUE TO MONITOR.
--- NOTE | 2020-04-21 05:37 | NUR ---
PATIENT RESTING IN BED, NO NOTED NEEDS AT THIS TIME. SITTER WITHIN VIEW OF PATIENT. WILL CONTINUE TO MONITOR.
--- NOTE | 2020-04-21 06:34 | NUR ---
PATIENT'S VITAL SIGNS WITHIN NORMAL LIMITS. DENIES ANY FURTHER NEEDS AT THIS TIME. SITTER WITHIN VIEW OF PATIENT.
[2020-04-21 07:43] VITALS: BP 114/73
--- NOTE | 2020-04-21 07:49 | NUR ---
safety precautions in place
--- NOTE | 2020-04-21 10:05 | NUR ---
[facility]: PT ACCEPTED TO [facility] PER [place]
--- NOTE | 2020-04-21 10:11 | NUR ---
Steady ambulation to bathoom. safety precautions in place.
--- NOTE | 2020-04-21 11:00 | NUR ---
Report called to [facility] rn. Pt aware of POC.
[2020-04-21] MEDS ORDERED: SERT50TA28 PO (12:18)
[2020-04-21] MEDS ORDERED: TRAZ50TA66 PO (12:18)
[2020-04-21] MEDS ORDERED: QUET100T PO (12:18)
== END 2020-04-21 11:25 | disposition other institution (70) ==
LOC: ED 19:30
DX: R45.851 Suicidal ideations (principal); F17.200 Nicotine dependence, unspecified, uncomplicated
CPT/HCPCS: 36415; 80053; 80307; 85025; 99284; 99285

== ENCOUNTER 2020-04-21 10:52 | Inpatient (IN) | payer MEDICAID ==
[~2020-04-21] VITALS: Ht 185.4 cm; Wt 86.3 kg
[2020-04-21] MEDS ORDERED: DOCUSATE 100 MG CAPSULE PO PRN (11:00)
[2020-04-21] MEDS ORDERED: ONDANSETRON ODT 4 MG PO PRN (11:00)
[2020-04-21] MEDS ORDERED: POLYETHYLENE GLYCOL 17 GM PACKET PO PRN (11:00)
[2020-04-21] MEDS ORDERED: PLEASE ENTER HEIGHT AND WEIGHT MC SCH (12:00)
[2020-04-21 12:01] VITALS: BP 126/76
[2020-04-21] MEDS: QUETIAPINE 100MG TABLET PO SCH ×2 (12:14→19:55)
[2020-04-21] MEDS: LORazepam 1MG TABLET PO PRN ×2 (12:14→19:55)
[2020-04-21] MEDS ORDERED: TRAZ50TA66 PO (12:18)
[2020-04-21] MEDS ORDERED: QUET100T PO (12:18)
[2020-04-21] MEDS ORDERED: SERT50TA28 PO (12:18)
[2020-04-21] MEDS: ACETAMINOPHEN 325 MG TABLET PO PRN (12:19)
[2020-04-21] MEDS: NICOTINE 14MG/24 HR PATCH.TD24 TD SCH (16:16)
[2020-04-21 19:20] VITALS: BP 100/50
[2020-04-21 19:25] VITALS: BP 114/72
[2020-04-22 07:46] VITALS: BP 106/70
[2020-04-22 08:15] LABS: CHOL/HDL RATIO 3.2; FREE T4 (FREE THYROXINE) 1.25 ng/dL (0.76-1.46); LDL/HDL RATIO 1.9 (0.5-3.0)
[2020-04-22] MEDS: SERTRALINE 50MG TABLET PO SCH (08:51)
[2020-04-22] MEDS: QUETIAPINE 100MG TABLET PO SCH ×2 (08:51→20:11)
[2020-04-22] MEDS: LORazepam 1MG TABLET PO PRN ×2 (08:51→18:14)
[2020-04-22] MEDS: NICOTINE 14MG/24 HR PATCH.TD24 TD SCH (17:20)
[2020-04-22 20:00] VITALS: BP 108/67
[2020-04-22] MEDS: TRAZODONE 50MG TABLET PO PRN (20:11)
[2020-04-23 07:40] VITALS: BP 99/67
[2020-04-23] MEDS: ACETAMINOPHEN 325 MG TABLET PO PRN (08:43)
[2020-04-23] MEDS: QUETIAPINE 100MG TABLET PO SCH ×2 (08:44→20:01)
[2020-04-23] MEDS: LORazepam 1MG TABLET PO PRN ×2 (08:44→20:01)
[2020-04-23] MEDS: SERTRALINE 50MG TABLET PO SCH (09:42)
[2020-04-23] MEDS: NICOTINE 14MG/24 HR PATCH.TD24 TD SCH (16:00)
[2020-04-23 19:04] VITALS: BP 114/72
[2020-04-23] MEDS: TRAZODONE 50MG TABLET PO PRN (20:01)
[2020-04-24 07:39] VITALS: BP 113/75
[2020-04-24 08:40] LABS: MICROSCOPIC NOT IND
[2020-04-24] MEDS: QUETIAPINE 100MG TABLET PO SCH ×2 (08:41→20:03)
[2020-04-24] MEDS: SERTRALINE 50MG TABLET PO SCH (08:41)
[2020-04-24] MEDS: ACETAMINOPHEN 325 MG TABLET PO PRN (08:46)
[2020-04-24] MEDS: LORazepam 1MG TABLET PO PRN ×2 (08:46→20:08)
[2020-04-24] MEDS: NICOTINE 14MG/24 HR PATCH.TD24 TD SCH (09:00)
[2020-04-24 19:07] VITALS: BP 117/68
[2020-04-25 07:45] VITALS: BP 118/70
[2020-04-25] MEDS: QUETIAPINE 100MG TABLET PO SCH ×2 (07:50→20:01)
[2020-04-25] MEDS: SERTRALINE 100MG TABLET PO SCH (07:51)
[2020-04-25] MEDS: NICOTINE 14MG/24 HR PATCH.TD24 TD SCH (07:56)
[2020-04-25] MEDS: ACETAMINOPHEN 325 MG TABLET PO PRN ×2 (08:07→20:05)
[2020-04-25] MEDS: LORazepam 1MG TABLET PO PRN ×2 (08:07→20:01)
[2020-04-25 19:40] VITALS: BP 115/72
[2020-04-26 07:00] VITALS: BP 108/52
[2020-04-26] MEDS: QUETIAPINE 100MG TABLET PO SCH ×2 (08:34→20:33)
[2020-04-26] MEDS: SERTRALINE 100MG TABLET PO SCH (08:34)
[2020-04-26] MEDS: ACETAMINOPHEN 325 MG TABLET PO PRN ×3 (08:42→20:33)
[2020-04-26] MEDS: LORazepam 1MG TABLET PO PRN ×2 (08:42→20:34)
[2020-04-26] MEDS: NICOTINE 14MG/24 HR PATCH.TD24 TD SCH (08:42)
[2020-04-26 19:15] VITALS: BP 125/70
[2020-04-26] MEDS: TRAZODONE 50MG TABLET PO PRN (20:33)
[2020-04-27 07:45] VITALS: BP 109/69
[2020-04-27] MEDS: SERTRALINE 100MG TABLET PO SCH (08:17)
[2020-04-27] MEDS: LORazepam 1MG TABLET PO PRN (08:17)
[2020-04-27] MEDS: QUETIAPINE 100MG TABLET PO SCH (08:18)
[2020-04-27] MEDS: NICOTINE 14MG/24 HR PATCH.TD24 TD SCH (08:40)
[2020-04-27] MEDS: ACETAMINOPHEN 325 MG TABLET PO PRN (09:30)
== END 2020-04-27 10:15 | disposition home or self-care (01) | DRG 885 ==
LOC: 3E 11:08
PROVIDERS: ADMIT Psychiatry & Neurology Psychosomatic Medicine; ATTEND Psychiatry & Neurology Psychosomatic Medicine
DX: F31.9 Bipolar disorder, unspecified (principal); F41.9 Anxiety disorder, unspecified; F43.10 Post-traumatic stress disorder, unspecified; F17.200 Nicotine dependence, unspecified, uncomplicated; Z88.0 Allergy status to penicillin; Z59.0 Homelessness; Z79.899 Other long term (current) drug therapy
CPT/HCPCS: 36415; 71045; 80061; 81003; 82140; 84439; 93005

== ENCOUNTER 2020-04-28 12:58 | Emergency (ER) | payer MEDICAID ==
[~2020-04-28] VITALS: Ht 185.4 cm; Wt 84.6 kg
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
--- NOTE | 2020-04-28 13:29 | NUR ---
ATARAX GIVEN PER EMAR
--- NOTE | 2020-04-28 14:00 | NUR ---
RESTING QUIETLY ON GURNEY, CALL LIGHT W/IN REACH
[2020-04-28 14:43] VITALS: BP 151/94
== END 2020-04-28 14:46 | disposition home or self-care (01) ==
LOC: ED 14:36
DX: R41.1 Anterograde amnesia (principal)
CPT/HCPCS: 99283; Q0177

== ENCOUNTER 2020-04-28 21:47 | Emergency (ER) | payer MEDICAID ==
[~2020-04-28] VITALS: Ht 188 cm; Wt 83.4 kg
--- NOTE | 2020-04-28 22:44 | NUR ---
FIRST CONTACT WITH PT: PT SITTING UP IN [facility] STATES "I CAME IN TODAY BECAUSE I KEEP DOING METH". PT DENIES TAKING ANY MEDICATIONS AT THIS TIME. ANOx4, MAEx4, VSS, NAD, WCTM. PT GROSS NEURO INTACT, CMS INTACT, SKIN IS SUNBURNT WARM AND DRY. PT DENIES ANY ADDITIONAL NEEDS AT THIS TIME. GIANLUCA BAUM AT BS FOR REILLY
[2020-04-28] MEDS ORDERED: LORazepam 1MG TABLET ONE (22:47)
[2020-04-28 22:58] VITALS: BP 138/90
--- NOTE | 2020-04-28 22:59 | NUR ---
PT MEDICATED PER MAR. NO CHANGE IN CONDITION AT THIS TIME. NAD. VSS. WCTM. WAITING TO DC.
[2020-04-28] MEDS ORDERED: LORazepam 1MG TABLET PO ONE (23:00)
--- NOTE | 2020-04-28 23:36 | NUR ---
Patient given discharge instructions and they have confirmed that they understand the instructions. Patient ambulatory with steady gait. PT ANGRY AT TIME OF DC STATING "I JUST WANT TO GO UPSTAIRS, WHY CANT YOU GUYS JUST TAKE ME UP?!" PT RIPPED UP PAPERWORK WHILE AMBULATING OUT OF ER, NAD, P/W/D, VSS AT TIME OF DC. NO PERSONAL BELONGINGS LEFT IN ROOM AT DC.
== END 2020-04-28 23:38 | disposition home or self-care (01) ==
LOC: ED 22:55
DX: F41.1 Generalized anxiety disorder (principal); F15.10 Other stimulant abuse, uncomplicated; Z76.0 Encounter for issue of repeat prescription; Z72.9 Problem related to lifestyle, unspecified
CPT/HCPCS: 99281

== ENCOUNTER 2020-07-21 08:28 | Emergency (ER) | payer MEDICAID ==
[~2020-07-21] VITALS: Ht 185.4 cm; Wt 85.8 kg
[2020-07-21 08:31] VITALS: BP 158/91
--- NOTE | 2020-07-21 08:39 | NUR ---
PT TO WALL AT THIS TIME
[2020-07-21] MEDS ORDERED: LORazepam 1MG TABLET ONE ×2 (09:25→12:34)
[2020-07-21] MEDS ORDERED: OLANZAPINE 5 MG TABLET ONE (09:25)
--- NOTE | 2020-07-21 09:29 | NUR ---
ASSIGNMENT AGENT: PT COOPERATIVE WITH CARE. PT MEDICATED ORDERED. PT STATES "I'M NOT TRYING TO CAUSE ANY PROBLEMS" PT TO ROOM FROM NURSES STATION.
[2020-07-21] MEDS ORDERED: LORazepam 1MG TABLET PO ONE ×2 (09:30→13:00)
[2020-07-21] MEDS ORDERED: OLANZAPINE 5 MG TABLET PO ONE (09:30)
[2020-07-21 09:33] LABS: BASOPHILS % (AUTO) 1 % (0-1); EOSINOPHILS % (AUTO) 1 % (1-7); LYMPHOCYTES % (AUTO) 33 % (22-44); MEAN CORPUSCULAR HEMOGLOBIN 30.5 pg (27.5-34.5); MEAN CORPUSCULAR HGB CONC 33.8 g/dL (33.2-36.2); MEAN PLATELET VOLUME 11.3 fL (7.4-10.4); MONOCYTES % (AUTO) 8 % (2-9); NEUTROPHILS % (AUTO) 57 % (42-75); PLATELET COUNT 146 x10^3/uL (130-400); RED BLOOD COUNT 4.99 x10^6/uL (4.38-5.82); RED CELL DISTRIBUTION WIDTH 13.7 % (9.4-14.8)
[2020-07-21 09:39] LABS: MD NO
[2020-07-21 09:42] LABS: ALBUMIN 3.9 g/dL (3.4-5.0); ANION GAP 4 mmol/L (5-15); CALCIUM 8.6 mg/dL (8.5-10.1); CHLORIDE 109 mmol/L (98-107); SALICYLATE LEVEL < 1.7 mg/dL (2.8-20.0)
[2020-07-21 09:44] LABS: ALANINE AMINOTRANSFERASE 105 U/L (12-78); ALKALINE PHOSPHATASE 65 U/L (45-117); BILIRUBIN,TOTAL 0.8 mg/dL (0.2-1.0); CREATININE 0.89 mg/dL (0.7-1.3); TOTAL PROTEIN 7.6 g/dL (6.4-8.2)
--- NOTE | 2020-07-21 09:44 | NUR ---
BREAK RN: PT OOB AND AMBULATED TO BATHROOM. URINE SAMPLE COLLECTED AND SENT TO LAB. PT RTD TO ROOM W/O INCIDENT. SITTER AT DOORWAY WITH PT IN VIEW. ROOM SECURE
[2020-07-21 09:53] LABS: MICROSCOPIC INDICATED
[2020-07-21 10:03] LABS: AMPHETAMINE SCREEN, URINE Positive (Negative); BARBITURATE SCREEN, URINE Negative (Negative); BENZODIAZEPINE SCREEN, URINE Negative (Negative); CANNABINOID SCREEN, URINE Positive (Negative); COCAINE SCREEN, URINE Negative (Negative); METHADONE SCREEN, URINE Negative (Negative); OPIATE SCREEN, URINE Negative (Negative)
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
--- NOTE | 2020-07-21 10:57 | NUR ---
REPORT GIVEN TO MATTHEW AYON.
--- NOTE | 2020-07-21 11:11 | NUR ---
PT TO BE EVAL BY PSYCH ASSISTANT PROFESSOR OF ANTHROPOLOGY.
--- NOTE | 2020-07-21 11:26 | NUR ---
PT RESTING COMFORTABLY ON GURNEY WATCHING TV. PT IN DIRECT SIGHT OF SITTER.
--- NOTE | 2020-07-21 12:20 | NUR ---
DIET TRAY DELIVERED. PT APPRECIATIVE. PT IN DIRECT SIGHT OF SITTER.
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
--- NOTE | 2020-07-21 15:36 | NUR ---
REPORT GIVEN TO MARILYN CASTRO AT [facility].
== END 2020-07-21 16:23 ==
LOC: ED 08:59
DX: F32.9 Major depressive disorder, single episode, unspecified (principal); R45.851 Suicidal ideations; I10 Essential (primary) hypertension; F15.10 Other stimulant abuse, uncomplicated
CPT/HCPCS: 36415; 80053; 80307; 81001; 85025; 99285

== ENCOUNTER 2020-07-21 14:15 | Inpatient (IN) | payer MEDICAID ==
[~2020-07-21] VITALS: Ht 185.4 cm; Wt 84.6 kg
[2020-07-21] MEDS ORDERED: ONDANSETRON ODT 4 MG PO PRN (15:00)
[2020-07-21] MEDS ORDERED: BISACODYL 10 MG SUPP PR PRN (15:00)
[2020-07-21] MEDS ORDERED: DOCUSATE 100 MG CAPSULE PO PRN (15:00)
[2020-07-21] MEDS ORDERED: POLYETHYLENE GLYCOL 17 GM PACKET PO PRN (15:00)
[2020-07-21] MEDS ORDERED: TRAZODONE 50MG TABLET PO PRN (16:00)
[2020-07-21] MEDS ORDERED: PLEASE ENTER HEIGHT AND WEIGHT MC SCH (16:30)
[2020-07-21 17:17] VITALS: BP 121/81
[2020-07-21] MEDS ORDERED: hydrOXyzine 50MG TABLET PO PRN (18:00)
[2020-07-21 19:02] VITALS: BP 116/78
[2020-07-21] MEDS: QUETIAPINE 100MG TABLET PO SCH (21:00)
[2020-07-21] MEDS: DOXYCYCLINE 100MG TABLET PO SCH (21:00)
[2020-07-21] MEDS: MUPIROCIN OINT 2%, 22GM TP SCH (21:03)
[2020-07-22 07:29] VITALS: BP 124/84
[2020-07-22] MEDS ORDERED: SERTRALINE 100MG TABLET ONE (08:19)
[2020-07-22] MEDS: DOXYCYCLINE 100MG TABLET PO SCH ×2 (08:51→20:08)
[2020-07-22] MEDS: QUETIAPINE 100MG TABLET PO SCH ×2 (08:51→20:07)
[2020-07-22] MEDS: SERTRALINE 50MG TABLET PO SCH (08:52)
[2020-07-22] MEDS: MUPIROCIN OINT 2%, 22GM TP SCH ×3 (08:54→20:10)
[2020-07-22] MEDS: LORazepam 0.5MG TABLET PO PRN ×2 (13:41→20:07)
[2020-07-22] MEDS: ACETAMINOPHEN 325 MG TABLET PO PRN (16:24)
[2020-07-22 18:32] VITALS: BP 99/62
[2020-07-23 07:19] VITALS: BP 130/85
[2020-07-23] MEDS ORDERED: SERTRALINE 100MG TABLET ONE (07:49)
[2020-07-23] MEDS: QUETIAPINE 100MG TABLET PO SCH ×2 (08:09→20:14)
[2020-07-23] MEDS: DOXYCYCLINE 100MG TABLET PO SCH ×2 (08:09→20:14)
[2020-07-23] MEDS: LORazepam 0.5MG TABLET PO PRN ×2 (08:12→15:34)
[2020-07-23] MEDS: MUPIROCIN OINT 2%, 22GM TP SCH ×3 (09:00→21:00)
[2020-07-23] MEDS: SERTRALINE 50MG TABLET PO SCH (09:00)
[2020-07-23] MEDS ORDERED: LORazepam 1MG TABLET ONE (15:30)
[2020-07-23 19:12] VITALS: BP 116/73
[2020-07-24 07:43] VITALS: BP 117/74
[2020-07-24] MEDS: LORazepam 0.5MG TABLET PO PRN ×2 (07:53→20:16)
[2020-07-24] MEDS: ACETAMINOPHEN 325 MG TABLET PO PRN (07:53)
[2020-07-24] MEDS: SERTRALINE 50MG TABLET PO SCH (09:00)
[2020-07-24] MEDS ORDERED: SERTRALINE 100MG TABLET ONE (09:00)
[2020-07-24] MEDS: DOXYCYCLINE 100MG TABLET PO SCH ×2 (09:03→20:16)
[2020-07-24] MEDS: QUETIAPINE 100MG TABLET PO SCH ×2 (09:03→20:17)
[2020-07-24] MEDS: MUPIROCIN OINT 2%, 22GM TP SCH ×3 (09:04→20:17)
[2020-07-24] MEDS ORDERED: LORazepam 1MG TABLET ONE (12:24)
[2020-07-24] MEDS ORDERED: LORazepam 1MG TABLET PO ONE (12:30)
[2020-07-24 20:00] VITALS: BP 122/70
[2020-07-25 07:32] VITALS: BP 115/69
[2020-07-25] MEDS ORDERED: SERTRALINE 100MG TABLET ONE (08:20)
[2020-07-25] MEDS: DOXYCYCLINE 100MG TABLET PO SCH ×2 (08:44→19:47)
[2020-07-25] MEDS: LORazepam 0.5MG TABLET PO PRN ×2 (08:45→19:46)
[2020-07-25] MEDS: QUETIAPINE 100MG TABLET PO SCH ×2 (08:45→19:46)
[2020-07-25] MEDS: SERTRALINE 50MG TABLET PO SCH (08:47)
[2020-07-25] MEDS: MUPIROCIN OINT 2%, 22GM TP SCH ×3 (09:10→19:50)
[2020-07-25 19:56] VITALS: BP 104/60
[2020-07-26 07:18] VITALS: BP 106/62
[2020-07-26] MEDS ORDERED: SERTRALINE 100MG TABLET ONE (07:47)
[2020-07-26] MEDS: QUETIAPINE 100MG TABLET PO SCH ×2 (08:09→20:26)
[2020-07-26] MEDS: LORazepam 0.5MG TABLET PO PRN ×2 (08:09→18:06)
[2020-07-26] MEDS: DOXYCYCLINE 100MG TABLET PO SCH ×2 (08:09→20:26)
[2020-07-26] MEDS: SERTRALINE 50MG TABLET PO SCH (08:11)
[2020-07-26] MEDS: MUPIROCIN OINT 2%, 22GM TP SCH ×3 (09:00→20:27)
[2020-07-26 19:38] VITALS: BP 103/66
[2020-07-26] MEDS: ACETAMINOPHEN 325 MG TABLET PO PRN (20:46)
[2020-07-27 07:19] VITALS: BP 99/62
[2020-07-27] MEDS ORDERED: SERTRALINE 100MG TABLET ONE (08:09)
[2020-07-27] MEDS: LORazepam 0.5MG TABLET PO PRN ×2 (08:12→13:27)
[2020-07-27] MEDS: DOXYCYCLINE 100MG TABLET PO SCH (08:12)
[2020-07-27] MEDS: SERTRALINE 50MG TABLET PO SCH (08:14)
[2020-07-27] MEDS: QUETIAPINE 100MG TABLET PO SCH (08:14)
[2020-07-27] MEDS: MUPIROCIN OINT 2%, 22GM TP SCH (08:14)
[2020-07-27] MEDS ORDERED: SERT50TA28 PO (13:05)
[2020-07-27] MEDS ORDERED: HYDR50TA99 PO (13:05)
[2020-07-27] MEDS ORDERED: QUET100T PO (13:05)
[2020-07-27] MEDS ORDERED: DOXY100T PO (13:05)
== END 2020-07-27 13:39 | disposition home or self-care (01) | DRG 885 ==
LOC: 3E 16:20
PROVIDERS: ADMIT Psychiatry & Neurology Psychosomatic Medicine; ATTEND Psychiatry & Neurology Psychosomatic Medicine
DX: F31.30 Bipolar disorder, current episode depressed, mild or moderate severity, unspecified (principal); F15.20 Other stimulant dependence, uncomplicated; F41.9 Anxiety disorder, unspecified; G47.00 Insomnia, unspecified; F17.200 Nicotine dependence, unspecified, uncomplicated; Z79.899 Other long term (current) drug therapy; Z88.0 Allergy status to penicillin; Z91.030 Bee allergy status; Z79.891 Long term (current) use of opiate analgesic; Z79.01 Long term (current) use of anticoagulants; Z20.828 Contact with and (suspected) exposure to other viral communicable diseases
CPT/HCPCS: 87635; 93005

== ENCOUNTER 2020-10-20 12:50 | Emergency (ER) | payer MEDICAID ==
[~2020-10-20] VITALS: Ht 182.9 cm; Wt 78.7 kg
[~2020-10-20 12:50] MED LIST changes: -CLIN300C8 PO; +CLIN300C9 PO; +DOXY100T PO
--- NOTE | 2020-10-20 13:05 | NUR ---
PT AMBULATED STEADILY TO ROOM FROM TRIAGE, CHANGED INTO GOWN, UPRIGHT ON [facility] [employer], RESPONDS APPROP TO STAFF, NAD, COMFORT MEASURES PROVIDED, PT IN SAFE ENVIRONMENT, SITTER IN VIEW. Addendum: 10/20/20 at 1309 by IRAIS PT AMBULATED STEADILY TO ROOM FROM TRIAGE, CHANGED INTO GOWN, UPRIGHT ON [facility] [employer], RESPONDS APPROP TO STAFF, NAD, COMFORT MEASURES PROVIDED, PT IN SAFE ENVIRONMENT, SITTER IN VIEW, ALL PERSONAL BELONGINGS (CLOTHES/SHOES) X1 BAG PLACED IN LOCKER- DENIES VALUABLES.
[2020-10-20] MEDS ORDERED: hydrOXyzine 50MG TABLET ONE (13:20)
[2020-10-20 13:32] LABS: BASOPHILS % (AUTO) 2 % (0-1); EOSINOPHILS % (AUTO) 2 % (1-7); LYMPHOCYTES % (AUTO) 33 % (22-44); MEAN CORPUSCULAR HEMOGLOBIN 31.3 pg (27.5-34.5); MEAN CORPUSCULAR HGB CONC 33.6 g/dL (33.2-36.2); MEAN PLATELET VOLUME 10.9 fL (7.4-10.4); MONOCYTES % (AUTO) 9 % (2-9); NEUTROPHILS % (AUTO) 55 % (42-75); PLATELET COUNT 164 x10^3/uL (130-400); RED BLOOD COUNT 4.36 x10^6/uL (4.38-5.82); RED CELL DISTRIBUTION WIDTH 13.3 % (9.4-14.8)
[2020-10-20 13:35] LABS: MD NO
[2020-10-20 13:40] LABS: ALANINE AMINOTRANSFERASE 55 U/L (12-78); ALBUMIN 3.3 g/dL (3.4-5.0); ANION GAP 5 mmol/L (5-15); CALCIUM 8.8 mg/dL (8.5-10.1); CHLORIDE 111 mmol/L (98-107); CREATININE 0.67 mg/dL (0.7-1.3)
[2020-10-20 13:41] LABS: SALICYLATE LEVEL < 1.7 mg/dL (2.8-20.0)
[2020-10-20 13:42] LABS: ALKALINE PHOSPHATASE 58 U/L (45-117); BILIRUBIN,TOTAL 0.3 mg/dL (0.2-1.0); TOTAL PROTEIN 6.6 g/dL (6.4-8.2)
[2020-10-20 13:51] LABS: AMPHETAMINE SCREEN, URINE Positive (Negative); BARBITURATE SCREEN, URINE Negative (Negative); BENZODIAZEPINE SCREEN, URINE Negative (Negative); CANNABINOID SCREEN, URINE Positive (Negative); COCAINE SCREEN, URINE Negative (Negative); METHADONE SCREEN, URINE Negative (Negative); OPIATE SCREEN, URINE Negative (Negative)
--- NOTE | 2020-10-20 13:51 | NUR ---
PSYCH BAUTISTA VÁZQUEZ AT BS.
[2020-10-20] MEDS ORDERED: QUETIAPINE 100MG TABLET PO SCH (14:00)
[2020-10-20] MEDS ORDERED: hydrOXyzine 50MG TABLET PO ONE (14:00)
--- NOTE | 2020-10-20 14:01 | NUR ---
PT REMAINS UPRIGHT ON GURNEY CALM & COOPERATIVE, RESPONDS APPROP TO STAFF, NAD, NO NEEDS AT THIS TIME, PT IN SAFE ENVIRONMENT, SITTER IN VIEW.
[2020-10-20] MEDS ORDERED: QUETIAPINE 100MG TABLET ONE (14:02)
--- NOTE | 2020-10-20 15:03 | NUR ---
PT CALMLY SLEEPING ON GURNEY, NAD WITH EQUAL CHEST RISE/FALL, NO NEEDS AT THIS TIME, PT REMAINS IN SAFE ENVIRONMENT, SITTER IN VIEW.
--- NOTE | 2020-10-20 16:02 | NUR ---
PT CONTINUES TO CALMLY SLEEP ON GURNEY, NAD WITH EQUAL CHEST RISE/FALL, NO NEEDS AT THIS TIME, PT REMAINS IN SAFE ENVIRONMENT, SITTER IN VIEW.
--- NOTE | 2020-10-20 16:41 | NUR ---
Patient given discharge instructions and they have confirmed that they understand the instructions. Patient ambulatory with steady gait, transferred to [facility]. Addendum: 10/20/20 at 1728 by IRAIS Patient given discharge instructions and they have confirmed that they understand the instructions. Patient transferred to [facility] via with all personal belongings.
[2020-10-20 16:59] VITALS: BP 120/71
== END 2020-10-20 17:04 ==
LOC: ED 14:14
DX: R45.851 Suicidal ideations (principal); R45.850 Homicidal ideations; I10 Essential (primary) hypertension; F17.210 Nicotine dependence, cigarettes, uncomplicated; Z72.9 Problem related to lifestyle, unspecified
CPT/HCPCS: 36415; 80053; 80299; 80307; 80320; 80329; 85025; 87426; 99285; G0480

== ENCOUNTER 2020-10-20 16:35 | Inpatient (IN) | payer MEDICAID ==
[~2020-10-20] VITALS: Ht 182.9 cm; Wt 73.3 kg
[2020-10-20] MEDS ORDERED: DOCUSATE 100 MG CAPSULE PO PRN (17:00)
[2020-10-20] MEDS ORDERED: BISACODYL 10 MG SUPP PR PRN (17:00)
[2020-10-20] MEDS ORDERED: POLYETHYLENE GLYCOL 17 GM PACKET PO PRN (17:00)
[2020-10-20 17:16] LABS: MICROSCOPIC INDICATED
[2020-10-20] MEDS ORDERED: PLEASE ENTER HEIGHT AND WEIGHT MC SCH (18:00)
[2020-10-20] MEDS ORDERED: ONDANSETRON ODT 4 MG PO PRN (18:00)
[2020-10-20 18:04] VITALS: BP 118/74
[2020-10-20 21:06] VITALS: BP 118/74
[2020-10-21 07:11] VITALS: BP 110/83
[2020-10-21] MEDS ORDERED: LORazepam 1MG TABLET ONE (07:14)
[2020-10-21] MEDS ORDERED: QUETIAPINE 100MG TABLET ONE (07:14)
[2020-10-21] MEDS: LORazepam 1MG TABLET PO PRN ×3 (07:19→20:52)
[2020-10-21] MEDS ORDERED: QUETIAPINE 100MG TABLET PO ONE (07:30)
[2020-10-21 19:30] VITALS: BP 105/64
[2020-10-22 07:14] VITALS: BP 109/70
[2020-10-22] MEDS: LORazepam 1MG TABLET PO PRN ×3 (08:00→20:01)
[2020-10-22 09:39] LABS: CHOL/HDL RATIO 2.8; LDL/HDL RATIO 1.6 (0.5-3.0)
[2020-10-22] MEDS: SERTRALINE 50MG TABLET PO SCH (13:04)
[2020-10-22 19:49] VITALS: BP 113/67
[2020-10-22] MEDS: QUETIAPINE 100MG TABLET PO SCH (20:01)
[2020-10-23 07:52] VITALS: BP 100/67
[2020-10-23] MEDS: SERTRALINE 50MG TABLET PO SCH (08:45)
[2020-10-23] MEDS: LORazepam 1MG TABLET PO PRN ×3 (08:45→20:46)
[2020-10-23 19:42] VITALS: BP 106/67
[2020-10-23] MEDS: QUETIAPINE 100MG TABLET PO SCH (20:45)
[2020-10-24 07:37] VITALS: BP 109/69
[2020-10-24] MEDS: SERTRALINE 50MG TABLET PO SCH (08:42)
[2020-10-24] MEDS: LORazepam 1MG TABLET PO PRN ×2 (08:54→17:01)
[2020-10-24] MEDS: QUETIAPINE 100MG TABLET PO SCH (20:23)
[2020-10-25 07:22] VITALS: BP 96/52
[2020-10-25] MEDS: SERTRALINE 50MG TABLET PO SCH (08:22)
[2020-10-25] MEDS: LORazepam 1MG TABLET PO PRN ×3 (08:22→20:23)
[2020-10-25] MEDS: ACETAMINOPHEN 325 MG TABLET PO PRN ×2 (11:24→20:23)
[2020-10-25] MEDS ORDERED: HYDR50TA99 PO (14:52)
[2020-10-25] MEDS ORDERED: SERT50TA28 PO (14:52)
[2020-10-25] MEDS ORDERED: QUET100T PO (14:52)
[2020-10-25 20:17] VITALS: BP 106/61
[2020-10-25] MEDS: QUETIAPINE 100MG TABLET PO SCH (20:23)
[2020-10-26 07:13] VITALS: BP 92/54
[2020-10-26] MEDS: SERTRALINE 50MG TABLET PO SCH (08:27)
[2020-10-26] MEDS: LORazepam 1MG TABLET PO PRN ×2 (08:28→12:08)
[2020-10-26] MEDS: ACETAMINOPHEN 325 MG TABLET PO PRN (12:09)
== END 2020-10-26 13:00 | disposition home or self-care (01) | DRG 885 ==
LOC: 3E 17:12
PROVIDERS: ADMIT Psychiatry & Neurology Psychosomatic Medicine; ATTEND Psychiatry & Neurology Psychosomatic Medicine
DX: F31.60 Bipolar disorder, current episode mixed, unspecified (principal); F15.20 Other stimulant dependence, uncomplicated; R45.851 Suicidal ideations; F17.200 Nicotine dependence, unspecified, uncomplicated; F41.1 Generalized anxiety disorder; G47.00 Insomnia, unspecified; Z79.899 Other long term (current) drug therapy; Z91.19 Patient's noncompliance with other medical treatment and regimen; Z72.89 Other problems related to lifestyle; Z88.0 Allergy status to penicillin; Z91.030 Bee allergy status
CPT/HCPCS: 36415; 80061; 81001; 93005

== ENCOUNTER 2020-10-31 02:16 | Emergency (ER) | payer MEDICAID ==
[~2020-10-31] VITALS: Ht 185.4 cm; Wt 73.5 kg
[2020-10-31 02:18] VITALS: BP 127/83
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
[2020-10-31] MEDS ORDERED: IBUPROFEN 800 MG TABLET PO ONE (02:30)
[2020-10-31] MEDS ORDERED: IBUPROFEN 800 MG TABLET ONE (02:37)
--- NOTE | 2020-10-31 02:53 | NUR ---
PT COMPLAINING OF RIGHT FOOT PAIN FOR A FEW WEEKS. SANG LINDA AWARE.
--- NOTE | 2020-10-31 03:45 | NUR ---
RN TO CHECK ON PT, PT STANDING IN ROOM PACING AND VERY ANXIOUS TELLING RN "NO ONE IS RESPECTING ME OR HELPING ME AND I NEED MY ATIVAN". RN TRIED EDUCATING THAT WE ARE STILL WAITING FOR XRAY RESULTS TO BE READ. PT STARTED INTURPTING AND WALKING TOWARDS RN, RIPPING OFF BELT IN HOSTILE MANNER YELLING ABOUT NEEDING ANXIETY MEDS. RN LEFT ROOM AND PT FOLLOWED RN OUT TO NURSES STATION. SANG LINDA ABLE TO DE-ESCULATE SITUATION WITH PATIENT.
[2020-10-31] MEDS ORDERED: LORazepam 1MG TABLET PO ONE (05:00)
== END 2020-10-31 05:23 | disposition home or self-care (01) ==
LOC: ED 03:41
DX: S60.811A Abrasion of right wrist, initial encounter (principal); L03.113 Cellulitis of right upper limb; G89.11 Acute pain due to trauma; F15.129 Other stimulant abuse with intoxication, unspecified; F10.10 Alcohol abuse, uncomplicated; F17.210 Nicotine dependence, cigarettes, uncomplicated; I10 Essential (primary) hypertension; Z72.9 Problem related to lifestyle, unspecified; X58.XXXA Exposure to other specified factors, initial encounter; Y93.89 Activity, other specified; Y92.89 Other specified places as the place of occurrence of the external cause; Y99.8 Other external cause status; Y90.9 Presence of alcohol in blood, level not specified
CPT/HCPCS: 99284

== ENCOUNTER 2020-10-31 07:35 | Emergency (ER) | payer MEDICAID ==
[~2020-10-31] VITALS: Ht 185.4 cm; Wt 100.0 kg
[2020-10-31] MEDS ORDERED: LORazepam 1MG TABLET ONE (07:57)
[2020-10-31] MEDS ORDERED: LORazepam 1MG TABLET PO ONE (08:00)
[2020-10-31 08:03] VITALS: BP 140/72
--- NOTE | 2020-10-31 08:08 | NUR ---
pt was calmed down by two security guards. MD was able to assess and reassure pt. vss. sitter at door.
--- NOTE | 2020-10-31 08:08 | NUR ---
jaun CHACON from [facility]. pt arrived at [facility] demanding ativan and became very hostile. pt was placed on legal hold and brought to [facility]. upon arrival pt was very agitated and began throwing stuff at the door and was demanding ativan. denies any other complaints or concerns. vss on AMB
--- NOTE | 2020-10-31 09:08 | NUR ---
pt refused to leave room. security was called and escorted pt out of hospital
== END 2020-10-31 09:09 | disposition home or self-care (01) ==
LOC: ED 07:49
DX: F41.1 Generalized anxiety disorder (principal); F15.10 Other stimulant abuse, uncomplicated; R45.851 Suicidal ideations; I10 Essential (primary) hypertension; F17.200 Nicotine dependence, unspecified, uncomplicated
CPT/HCPCS: 99285

== ENCOUNTER 2020-11-02 11:15 | Emergency (ER) | payer MEDICAID ==
[~2020-11-02] VITALS: Ht 185.4 cm; Wt 81.0 kg
[2020-11-02 11:19] VITALS: BP 137/77
--- NOTE | 2020-11-02 11:49 | NUR ---
Juan Carlos psych MEDICAL EDITOR at bedside for eval.
[2020-11-02 12:10] LABS: BASOPHILS % (AUTO) 1 % (0-1); EOSINOPHILS % (AUTO) 2 % (1-7); LYMPHOCYTES % (AUTO) 19 % (22-44); MEAN CORPUSCULAR HEMOGLOBIN 31.2 pg (27.5-34.5); MEAN CORPUSCULAR HGB CONC 33.3 g/dL (33.2-36.2); MEAN PLATELET VOLUME 10.7 fL (7.4-10.4); MONOCYTES % (AUTO) 6 % (2-9); NEUTROPHILS % (AUTO) 72 % (42-75); PLATELET COUNT 140 x10^3/uL (130-400); RED BLOOD COUNT 4.39 x10^6/uL (4.38-5.82); RED CELL DISTRIBUTION WIDTH 13.8 % (9.4-14.8)
[2020-11-02 12:13] LABS: MD NO
[2020-11-02 12:13] LABS: BARBITURATE SCREEN, URINE Negative (Negative); BENZODIAZEPINE SCREEN, URINE Negative (Negative); CANNABINOID SCREEN, URINE Positive (Negative); COCAINE SCREEN, URINE Negative (Negative); METHADONE SCREEN, URINE Negative (Negative); OPIATE SCREEN, URINE Negative (Negative)
[2020-11-02 12:17] LABS: AMPHETAMINE SCREEN, URINE Negative (Negative)
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
[2020-11-02 12:24] LABS: ALBUMIN 3.2 g/dL (3.4-5.0); ANION GAP 3 mmol/L (5-15); CALCIUM 8.4 mg/dL (8.5-10.1); CHLORIDE 111 mmol/L (98-107)
[2020-11-02 12:27] LABS: ALANINE AMINOTRANSFERASE 56 U/L (12-78); ALKALINE PHOSPHATASE 71 U/L (45-117); BILIRUBIN,TOTAL 0.2 mg/dL (0.2-1.0); CREATININE 0.76 mg/dL (0.7-1.3); SALICYLATE LEVEL < 1.7 mg/dL (2.8-20.0); TOTAL PROTEIN 6.5 g/dL (6.4-8.2)
[2020-11-02] MEDS ORDERED: QUETIAPINE 100MG TABLET PO SCH ×2 (12:30→21:00)
[2020-11-02] MEDS ORDERED: QUETIAPINE 100MG TABLET ONE (12:40)
--- NOTE | 2020-11-02 12:53 | NUR ---
Pt up to bathroom, peed on the floor, laughing and stating "oh sorry, I missed." Pt pretended to take med while this RN was watching. This RN left, sitter reported that pt had not taken medication, he removed it from his mouth and was holding it between his fingers. Pt then threw the intact pill across the tobar and states "why are you a rat?" to the sitter.
[2020-11-02] MEDS ORDERED: LORazepam 1MG TABLET ONE (13:04)
--- NOTE | 2020-11-02 13:19 | NUR ---
Pt cried to this RN while being medicated with Ativan. Pt stated that God's going to kill him and that he wishes he could have a child and a family. This RN returned after medicated pt and informed him that "I have to clean the bathroom now since you peed on the floor." Pt responded, "why do you have to clean it if I made the mess?" Pt then got out of bed and cleaned the bathroom. Pt back to room now. Remains in view of sitter, will continue to monitor.
--- NOTE | 2020-11-02 13:27 | NUR ---
TP RN NOTE: PT DENIED BY [facility].
[2020-11-02] MEDS ORDERED: LORazepam 1MG TABLET PO ONE (13:30)
--- NOTE | 2020-11-02 14:00 | NUR ---
break rn- pt resting in bed, safety precautions in place.
--- NOTE | 2020-11-02 14:17 | NUR ---
PSYCH PACKET FAXED TO [facility], [facility], [facility], [facility]. FAX CONFIRMATION OF RECEIPT RECEIVED FROM EACH OF THE ABOVE. Addendum: 11/02/20 at 1424 by PETER PSYCH PACKET FAXED TO [facility], [facility], [facility], [facility]. FAX CONFIRMATION OF RECEIPT RECEIVED FROM EACH OF THE ABOVE.
--- NOTE | 2020-11-02 14:29 | NUR ---
PT ACCEPTED BY [facility].
--- NOTE | 2020-11-02 14:30 | NUR ---
Report to MATTHEW Chavez at [facility].
--- NOTE | 2020-11-02 15:27 | NUR ---
Pt continually requesting food, stating he hasn't eaten. Pt updated on POC including transfer to [facility]. Pt became irritated, leaving his room and demanding food, speaking over this RN. Gina called. Pt got back to bed on own and has stayed in his room since. Pt remains in view of the sitter.
== END 2020-11-02 16:23 ==
LOC: ED 11:57
DX: R45.851 Suicidal ideations (principal); F33.9 Major depressive disorder, recurrent, unspecified; I10 Essential (primary) hypertension; F17.200 Nicotine dependence, unspecified, uncomplicated
CPT/HCPCS: 36415; 80053; 80299; 80307; 80329; 84443; 85025; 99285; G0480

== ENCOUNTER 2020-11-19 11:18 | Emergency (ER) | payer MEDICAID ==
[~2020-11-19] VITALS: Ht 185.4 cm; Wt 78.8 kg
[2020-11-19] MEDS ORDERED: ZIPRASIDONE 20 MG INJ IM ONE ×2 (11:55→12:00)
[2020-11-19] MEDS ORDERED: LORazepam 1MG TABLET ONE (11:56)
[2020-11-19 11:59] LABS: BASOPHILS % (AUTO) 1 % (0-1); EOSINOPHILS % (AUTO) 2 % (1-7); LYMPHOCYTES % (AUTO) 26 % (22-44); MEAN CORPUSCULAR HEMOGLOBIN 31.5 pg (27.5-34.5); MEAN CORPUSCULAR HGB CONC 34.2 g/dL (33.2-36.2); MEAN PLATELET VOLUME 10.6 fL (7.4-10.4); MONOCYTES % (AUTO) 8 % (2-9); NEUTROPHILS % (AUTO) 63 % (42-75); PLATELET COUNT 164 x10^3/uL (130-400); RED BLOOD COUNT 4.81 x10^6/uL (4.38-5.82); RED CELL DISTRIBUTION WIDTH 13.6 % (9.4-14.8)
[2020-11-19 12:00] LABS: MD NO
[2020-11-19] MEDS ORDERED: LORazepam 1MG TABLET PO ONE (12:00)
[2020-11-19 12:10] LABS: ALBUMIN 4.2 g/dL (3.4-5.0); ANION GAP 4 mmol/L (5-15); CALCIUM 9.1 mg/dL (8.5-10.1); CHLORIDE 106 mmol/L (98-107); CREATININE 0.95 mg/dL (0.7-1.3); SALICYLATE LEVEL < 1.7 mg/dL (2.8-20.0)
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
--- NOTE | 2020-11-19 13:42 | NUR ---
pt drowsy. psychiatry unable to perform a full evaluation.
--- NOTE | 2020-11-19 14:12 | NUR ---
VS checked, plan of care discussed.
--- NOTE | 2020-11-19 15:15 | NUR ---
sitter outside of room. pt responds to voice, refuses to opens eyes. refuses to give a urine sample. refuses water.
--- NOTE | 2020-11-19 15:29 | NUR ---
up to bedside to produce urine sample. steady on feet.
[2020-11-19] MEDS ORDERED: LORA2TAB99 PO (15:50)
[2020-11-19] MEDS ORDERED: TRAZ-175 PO (15:51)
[2020-11-19 16:04] LABS: AMPHETAMINE SCREEN, URINE Positive (Negative); BARBITURATE SCREEN, URINE Negative (Negative); BENZODIAZEPINE SCREEN, URINE Negative (Negative); CANNABINOID SCREEN, URINE Negative (Negative); COCAINE SCREEN, URINE Negative (Negative); METHADONE SCREEN, URINE Negative (Negative); OPIATE SCREEN, URINE Negative (Negative)
--- NOTE | 2020-11-19 16:40 | NUR ---
TASK RN: PT PROVIDED WITH MEAL TRAY AT THIS TIME
--- NOTE | 2020-11-19 17:18 | NUR ---
Aretha GARDEN IMPLEMENT MECHANIC has left room with patient to be medicated and discharged via taxi to [facility]. pt ambulates to bathroom with even steady gait.
[2020-11-19] MEDS ORDERED: LORazepam 0.5MG TABLET ONE (17:27)
[2020-11-19] MEDS ORDERED: LORazepam 0.5MG TABLET PO ONE (17:30)
[2020-11-19 17:46] VITALS: BP 135/85
--- NOTE | 2020-11-19 17:51 | NUR ---
pt discharged. ambulates with even steady gait. daron called for patient. Patient to security to forklift picker his knife.
== END 2020-11-19 17:55 ==
LOC: ED 12:29
DX: F33.3 Major depressive disorder, recurrent, severe with psychotic symptoms (principal); F14.159 Cocaine abuse with cocaine-induced psychotic disorder, unspecified; F15.10 Other stimulant abuse, uncomplicated; R45.851 Suicidal ideations; F41.1 Generalized anxiety disorder; F17.200 Nicotine dependence, unspecified, uncomplicated
CPT/HCPCS: 36415; 80048; 80299; 80307; 80329; 82040; 85025; 96372; 99285; J3486; G0480

== ENCOUNTER 2020-11-30 06:35 | Emergency (ER) | payer MEDICAID ==
[~2020-11-30] VITALS: Ht 185.4 cm; Wt 87.6 kg
[~2020-11-30 06:35] MED LIST changes: +TRAZ-175 PO
[2020-11-30 06:41] VITALS: BP 132/86
--- NOTE | 2020-11-30 06:48 | NUR ---
levi DAWKINS at bedside
--- NOTE | 2020-11-30 07:01 | NUR ---
RN in to room after PA left room after being told by Mario DAWKINS that patient has changed his complaint to SI with a plan. As I walked in room patient had medication bottle up to his mouth and was ingesting 3 capsules and he states "they are my meds. its just vistaril". RN repeated request to spit out these meds 3 times and patient spit out 3 of them and they were placed back in his medication bottle. medication bottle states hydroxzyine 1 cap Q6 hours as needed. patient told Mario DAWKINS that he had taken ~15 atarax since yesterday. Report of what I know of this patient from PA report and what I witnessed with pill bottle handedoff to Sergio CASTRO. I have not seen this patient for treatment. I instructed patient to change into gown and place all clothes in bags.
--- NOTE | 2020-11-30 07:10 | NUR ---
All patients belongings, clothes, shoes, wallet in secured locker. room secured, sitter present. pt given call light
--- NOTE | 2020-11-30 07:12 | NUR ---
REPORT FROM SPENCER SIN IN GOWN IN SECURE ROOM. BELONGINGS IN LOCKER. SITTER PRESENT
[2020-11-30 07:42] LABS: AMPHETAMINE SCREEN, URINE Positive (Negative); BARBITURATE SCREEN, URINE Negative (Negative); BENZODIAZEPINE SCREEN, URINE Negative (Negative); CANNABINOID SCREEN, URINE Negative (Negative); COCAINE SCREEN, URINE Negative (Negative); METHADONE SCREEN, URINE Negative (Negative); OPIATE SCREEN, URINE Negative (Negative)
[2020-11-30 07:47] LABS: MICROSCOPIC INDICATED
[2020-11-30 07:48] LABS: BASOPHILS % (AUTO) 1 % (0-1); EOSINOPHILS % (AUTO) 1 % (1-7); LYMPHOCYTES % (AUTO) 16 % (22-44); MEAN CORPUSCULAR HEMOGLOBIN 31.4 pg (27.5-34.5); MEAN PLATELET VOLUME 10.3 fL (7.4-10.4); MONOCYTES % (AUTO) 8 % (2-9); NEUTROPHILS % (AUTO) 74 % (42-75); PLATELET COUNT 146 x10^3/uL (130-400); RED BLOOD COUNT 4.78 x10^6/uL (4.38-5.82)
[2020-11-30 07:53] LABS: MD NO
[2020-11-30 08:04] LABS: ALBUMIN 3.9 g/dL (3.4-5.0); ANION GAP 7 mmol/L (5-15); CALCIUM 8.5 mg/dL (8.5-10.1); CHLORIDE 107 mmol/L (98-107)
[2020-11-30 08:12] LABS: ALANINE AMINOTRANSFERASE 202 U/L (12-78); ALKALINE PHOSPHATASE 89 U/L (45-117); BILIRUBIN,TOTAL 0.3 mg/dL (0.2-1.0); CREATININE 0.84 mg/dL (0.7-1.3); TOTAL PROTEIN 7.6 g/dL (6.4-8.2)
[2020-11-30 08:16] LABS: SALICYLATE LEVEL < 1.7 mg/dL (2.8-20.0)
--- NOTE | 2020-11-30 08:34 | NUR ---
MEAL TRAY GIVEN TO PT
[2020-11-30] MEDS ORDERED: LORazepam 1MG TABLET ONE ×2 (09:47→09:48)
--- NOTE | 2020-11-30 09:53 | NUR ---
PT ANXIOUS, KEEPS COMING OUT OF ROOM. MEDICATED W ATIVAN, GIVEN WATER. SITTER PRESENT
[2020-11-30] MEDS ORDERED: LORazepam 1MG TABLET PO ONE (10:00)
--- NOTE | 2020-11-30 10:02 | NUR ---
BREAK RN: PT UPRIGHT ON GURNEY AWAKE, CALM & COOPERATIVE, PSYCH CHIEF DESIGN BRANCH (ANGELITO) AT BS, NO NEEDS AT THIS TIME, NAD, PT REMAINS IN SAFE ENVIRONMENT, SITTER IN VIEW.
--- NOTE | 2020-11-30 10:25 | NUR ---
BELONGINGS BACK TO PATIENT. GIVEN TAXI VOUCHER TO [place]. SEEN BY GHAZALA BAUM.
--- NOTE | 2020-11-30 10:42 | NUR ---
Patient/Caregiver given discharge instructions and they have confirmed that they understand the instructions. Patient ambulatory with steady gait.
== END 2020-11-30 10:44 | disposition home or self-care (01) ==
LOC: ED 07:36
DX: F39 Unspecified mood [affective] disorder (principal); F15.20 Other stimulant dependence, uncomplicated; R45.851 Suicidal ideations; F41.9 Anxiety disorder, unspecified; I10 Essential (primary) hypertension; Z72.9 Problem related to lifestyle, unspecified
CPT/HCPCS: 36415; 80053; 80299; 80307; 80320; 80329; 81001; 82140; 85025; 99283; G0480

== ENCOUNTER 2021-02-05 15:09 | Emergency (ER) | payer MEDICAID ==
[~2021-02-05] VITALS: Ht 185.4 cm; Wt 81.0 kg
--- NOTE | 2021-02-05 15:33 | NUR ---
CC OF ANXIETY AND SI. STATES HE FELL ON THE CARPET, DENIES LOC/ HITTING HEAD. PT STATES HIS ANXIETY IS BAD AND HE WANTS TO KILL HIMSELF WITH A GUN, BUT DOES NOT HAVE ACCESS TO ONE. PTS BELONGINGS BAGGED AND PLACED IN LOCKER, PT IN HOSPITAL GOWN, SI PRECAUTIONS IN PLACE AND SITTER IN ROOM.
--- NOTE | 2021-02-05 15:35 | NUR ---
BREATHALYZER 0.013
[2021-02-05 15:46] LABS: BASOPHILS % (AUTO) 1 % (0-1); EOSINOPHILS % (AUTO) 1 % (1-7); LYMPHOCYTES % (AUTO) 28 % (22-44); MD NO; MEAN CORPUSCULAR HEMOGLOBIN 30.5 pg (27.5-34.5); MEAN PLATELET VOLUME 10.5 fL (7.4-10.4); MONOCYTES % (AUTO) 11 % (2-9); NEUTROPHILS % (AUTO) 59 % (42-75); PLATELET COUNT 153 x10^3/uL (130-400)
[2021-02-05 15:54] LABS: ALBUMIN 3.7 g/dL (3.4-5.0); ANION GAP 9 mmol/L (5-15); CALCIUM 8.1 mg/dL (8.5-10.1); CHLORIDE 106 mmol/L (98-107); CREATININE 0.98 mg/dL (0.7-1.3); SALICYLATE LEVEL < 1.7 mg/dL (2.8-20.0)
--- NOTE | 2021-02-05 16:17 | NUR ---
REPORT TO ARTURO CASTRO
--- NOTE | 2021-02-05 16:20 | NUR ---
pt has been moved form room 14 to room 3 assumed care o pt. report jenny Carr RN pt here on legal hold fr SI with plan. pt reports that he wants to end his life with a gun. pt states that he does not have access to a gun at this time pt has been evaluated by kiko Rangel APRN pt has been undresse and placed in hospital gown. room secured. sitter present for safety warm blankets given
[2021-02-05 16:25] LABS: AMPHETAMINE SCREEN, URINE Positive (Negative); BARBITURATE SCREEN, URINE Negative (Negative); BENZODIAZEPINE SCREEN, URINE Negative (Negative); CANNABINOID SCREEN, URINE Positive (Negative); COCAINE SCREEN, URINE Negative (Negative); METHADONE SCREEN, URINE Negative (Negative); OPIATE SCREEN, URINE Positive (Negative)
[2021-02-05] MEDS ORDERED: OLANZAPINE 10 MG TABLET PO SCH (16:30)
[2021-02-05] MEDS ORDERED: NICOTINE 7 MG/24 HR PATCH.TD24 TD PRN (16:30)
[2021-02-05] MEDS ORDERED: HYDROXYZINE PAMOATE 50MG CAP PO PRN (16:30)
--- NOTE | 2021-02-05 17:26 | NUR ---
meal tray ordered pt sitting up on gurney in position of comfort room secure. sitter present for safety
--- NOTE | 2021-02-05 17:53 | NUR ---
fresh socks given per request meal tray given
[2021-02-05] MEDS ORDERED: OLANZAPINE 10 MG TABLET ONE (18:09)
[2021-02-05] MEDS ORDERED: OLANZAPINE 10 MG INJ IM ONE (18:09)
--- NOTE | 2021-02-05 18:09 | NUR ---
pt has not become agitated. yelling and swearing. banging tray in room security has been to bedside. pt tearful. attempting to calm pt
[2021-02-05] MEDS ORDERED: hydrOXyzine 50MG TABLET ONE (18:10)
[2021-02-05] MEDS ORDERED: NICOTINE 7 MG/24 HR PATCH.TD24 ONE (18:11)
--- NOTE | 2021-02-05 18:18 | NUR ---
TASK RN: PT MEDICATED NOTED ON DEC. PT LEAVING ROOM AND SAYS HE IS GOING TO LEAVE.
--- NOTE | 2021-02-05 18:27 | NUR ---
PACKET FAXED TO [facility], [facility] AND [facility]
[2021-02-05 18:30] VITALS: BP 136/83
[2021-02-05] MEDS ORDERED: ZIPRASIDONE 20 MG INJ IM ONE ×2 (18:30→18:54)
--- NOTE | 2021-02-05 18:45 | NUR ---
received report from MATTHEW Prado. patient agitated, medicated.
--- NOTE | 2021-02-05 18:48 | NUR ---
DENIED BY [facility]
--- NOTE | 2021-02-05 18:49 | NUR ---
pt is pacing in room room secure, sitter present for safety report to Myles CASTRO
--- NOTE | 2021-02-05 19:09 | NUR ---
tp rn: ravinder agarwal accepting pt with dr coronado as accepting
--- NOTE | 2021-02-05 19:30 | NUR ---
report given to Curtis Jaime RN.
--- NOTE | 2021-02-05 19:40 | NUR ---
patient calm and cooperative. water provided.
--- NOTE | 2021-02-05 19:58 | NUR ---
patient sleeping at this time. sitter at the door.
--- NOTE | 2021-02-05 21:02 | NUR ---
[facility].
== END 2021-02-05 21:04 ==
LOC: ED 16:38
DX: R45.851 Suicidal ideations (principal); F41.9 Anxiety disorder, unspecified; I10 Essential (primary) hypertension; F17.200 Nicotine dependence, unspecified, uncomplicated; F32.9 Major depressive disorder, single episode, unspecified
CPT/HCPCS: 36415; 80048; 80299; 80307; 80320; 82040; 85025; 96372; 99285; J3486; 80329; G0480

== ENCOUNTER 2021-06-08 14:55 | Emergency (ER) | payer MEDICAID ==
[~2021-06-08] VITALS: Ht 182.9 cm; Wt 90.7 kg
[2021-06-08] MEDS ORDERED: IBUPROFEN 600 MG TABLET ONE (15:43)
[2021-06-08] MEDS ORDERED: IBUPROFEN 600 MG TABLET PO ONE (16:30)
--- NOTE | 2021-06-08 16:41 | NUR ---
PT REC'VD DISCHARGE INSTRUCTIONS AND EDUCATION. PT HAD NO FURTHER QUESTIONS. PT AMBULATED TO DC AREA, STEADY GAIT.
[2021-06-08 16:42] VITALS: BP 146/103
== END 2021-06-08 16:50 | disposition home or self-care (01) ==
LOC: ED 15:25
DX: S60.221A Contusion of right hand, initial encounter (principal); M25.531 Pain in right wrist; I10 Essential (primary) hypertension; X58.XXXA Exposure to other specified factors, initial encounter; Y93.89 Activity, other specified; Y92.410 Unspecified street and highway as the place of occurrence of the external cause; Y99.8 Other external cause status
CPT/HCPCS: 29125; 99284